=== PATIENT | male | born 1975 | race Caucasian/White ===

== ENCOUNTER 2017-03-25 21:34 | Emergency (ER) | payer SELFPAY ==
--- NOTE | 2017-03-25 22:04 | Emergency Department Record ---
History of Present Illness - General Chief complaint: Abscess Stated complaint: UNSTABLE,SPOT ON LEG, FEELING BAD Time Seen by Provider: 03/25/17 21:36 Source: Patient Mode of Arrival: Ambulatory Limitations: No limitations - History of Present Illness Initial comments: 42 yo male presents to ED with a CC of swelling, pain, and now drainage from a lesion to the left lateral thigh. Patient reports that the lesion has been present since July, however this week became more "hard" and swollen, reports that the lesion has been draining fluid after squeezing it hard tonight in the shower. Patient also reports feeling "off" for the past several days, states "I think it's from this infection". Patient denies health problems at his baseline. MD complaint: Abscess/boil Onset/Timin -: Month(s) Location: LLE Severity scale (1-10): 8 Quality: Burning Consistency: Constant, Getting worse Improves with: Other Worsens with: Movement Associated symptoms: Other Treatments Prior to Arrival: Other Treatment Prior to Arrival Comment:: soaked in tub - Related Data Previous Rx's Medication Instructions Recorded Clindamycin HCl [Cleocin HCl] 300 mg PO QID #40 capsule 03/25/17 Allergies Allergy/AdvReac Type Severity Reaction Status Date / Time No Known Drug Allergies Allergy Verified 03/25/17 21:40 Travel Screening - Travel/Exposure Within Last 30 Days Have you traveled within the last 30 days?: No - Travel Symptoms Symptom Screening: None Review of Systems Constitutional: Reports: Malaise. Denies: Chills, Fever, Night sweats Eyes: Denies: Eye discharge, Eye pain ENT: Denies: Congestion, Ear pain, Epistaxis Respiratory: Denies: Cough, Dyspnea Cardiovascular: Denies: Chest pain, Dyspnea on exertion Endocrine: Denies: Fatigue, Heat or cold intolerance Gastrointestinal: Denies: Abdominal pain, Nausea, Vomiting Genitourinary: Denies: Incontinence, Retention Musculoskeletal: Denies: Arthralgia, Back pain, Gout, Joint swelling Skin: Reports: Other (lesion to the left lower extremity). Denies: Bruising, Change in color, Change in hair/nails Neurological: Denies: Confusion, Headache Psychiatric: Reports: Anxiety Hematological/Lymphatic: Denies: Anemia, Blood Clots Past Medical History - SOCIAL HISTORY Smoking Status: Current every day smoker - RESPIRATORY Hx Respiratory Disorders: Yes Hx Sleep Apnea: Yes Hx of CPAP: Yes - CARDIOVASCULAR Hx Cardio Disorders: Yes Hx Edema: Yes Hx Hypertension: Yes - NEURO Hx Neuro Disorders: Yes Comment:: Neuropathy-feet - GI Hx GI Disorders: No - Hx Genitourinary Disorders: No - ENDOCRINE Hx Endocrine Disorders: No - MUSCULOSKELETAL Hx Musculoskeletal Disorders: No - PSYCH Hx Psych Problems: Yes Hx Anxiety: Yes - HEMATOLOGY/ONCOLOGY Hx Hematology/Oncology Disorders: No Family Medical History Any Significant Family History?: Yes Hx Cancer: Father Hx HTN: Father Physical Exam - General General Appearance: Alert, Oriented x3, Cooperative, No acute distress, Anxious Limitations: No limitations - Head Head exam: Atraumatic, Normocephalic, Normal inspection Head exam detail: negative: Abrasion, Contusion, Babin's sign, General tenderness, Hematoma, Laceration - Eye Eye exam: Normal appearance. negative: Conjunctival injection, Periorbital swelling, Periorbital tenderness, Scleral icterus - ENT Ear exam: negative: Auricular hematoma, Auricular trauma Nasal Exam: negative: Active bleeding, Discharge, Dried blood, Foreign body Mouth exam: negative: Drooling, Laceration, Muffled voice, Tongue elevation - Neck Neck exam: Normal inspection. negative: Meningismus, Tenderness - Respiratory Respiratory exam: Normal lung sounds bilaterally. negative: Rales, Respiratory distress, Rhonchi, Stridor - Cardiovascular Cardiovascular Exam: Regular rate, Normal rhythm, Normal heart sounds - GI/Abdominal GI/Abdominal exam: Soft. negative: Rebound, Rigid, Tenderness - Rectal Rectal exam: Deferred - exam: Deferred - Extremities Extremities exam: Tenderness, Other (2.5 cm diameter circular lesion of erythema and induration, no fluctuance present). negative: Calf tenderness, Pedal edema - Back Back exam: Denies: CVA tenderness (R), CVA tenderness (L) - Neurological Neurological exam: Alert, Normal gait, Oriented X3 - Psychiatric Psychiatric exam: Normal affect, Normal mood - Skin Skin exam: Normal color. negative: Abrasion Type of lesion: negative: abrasion Course Vital Signs 03/25/17 21:44 Temperature 98.4 F Pulse Rate [ 87 Pulse Ox Probe] Respiratory 18 Rate Blood Pressure 143/105 [Left Arm] Pulse Ox 95 - Reevaluation(s) Reevaluation #1: 03/25/17 22:02 On examination, patient's lesion appears c/w mild cellulitis, no evidence for abscess on examination and no drainage is present. Patient's vitals are all within normal limits, and the patient appears stable for discharge on Clindamycin for possible MRSA coverage. Disposition Disposition: Discharge Clinical Impression: Cellulitis Qualifiers: Site of cellulitis: extremity Site of cellulitis of extremity: lower extremity Laterality: left Qualified Code(s): L03.116 - Cellulitis of left lower limb Disposition: Home, Self-Care Condition: (2) Stable Instructions: Cellulitis (ED) Additional Instructions: Return to ED if your symptoms worsen or if you have any concerns. Clindamycin as directed. Follow-up with your family doctor in 3-5 days as directed. Prescriptions: Clindamycin HCl [Cleocin HCl] 300 mg PO QID #40 capsule Forms: Patient Portal Access Time of Disposition: 22:05 Quality - Quality Measures Quality Measures: N/A - Blood Pressure Screening Does Patient Have Any of the Following: No Blood Pressure Classification: Hypertensive Reading Systolic Measurement: 143 Diastolic Measurement: 105 Screening for High Blood Pressure: < First Hypertensive BP, F/U Documented > [ G8950] First Hypertensive Follow-up Interventions: Referral to alternative/primary care provider.
== END 2017-03-25 22:14 | disposition home or self-care (01) ==
LOC: ER 21:34
DX: L03.116 Cellulitis of left lower limb (principal)
CPT/HCPCS: 99282

== ENCOUNTER 2017-09-19 11:10 | Emergency (ER) | payer BC ==
--- NOTE | 2017-09-19 11:42 | Emergency Department Record ---
History of Present Illness - General Chief complaint: Extremity Problem Stated complaint: LEFT FOOT SWELLING/RED Time Seen by Provider: 09/19/17 11:22 Mode of Arrival: Wheelchair - History of Present Illness Initial comments: patient said the toes became infected 7 days ago and on presentation the toes on the left foot are necrotic with toe nails falling off and open wounds. Some redness in the mid foot area. Se[place] and they thought he had zamora bite and gave him keflex but he never filled it. Neuropathy of feet for 3 years and MERSA 3 years ago right foot and he fractured the right foot than 3 years ago. Primary provider Ching Hammer. 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 Onset/Timin -: Days(s) Location: Left, Foot Severity scale (1-10): 9 Quality: Aching Consistency: Constant - Related Data Home Medications Medication Instructions Recorded Confirmed Last Taken No Home Med [NO HOME MEDS] 09/19/17 09/19/17 Unknown Allergies Allergy/AdvReac Type Severity Reaction Status Date / Time No Known Drug Allergies Allergy Verified 09/19/17 11:23 Travel Screening - Travel/Exposure Within Last 30 Days Have you traveled within the last 30 days?: No - Travel/Exposure Within Last Year Have you traveled outside the [place] in the last year?: No - Additonal Travel Details Have you been exposed to anyone with a communicable illness?: No - Travel Symptoms Symptom Screening: None Review of Systems Reviewed: No additional complaints except as noted below Constitutional: Reports: As per HPI. Denies: Chills, Fever, Malaise, Night sweats, Weakness, Weight change Eyes: Reports: As per HPI. Denies: Eye discharge, Eye pain, Photophobia, Vision change ENT: Reports: As per HPI. Denies: Congestion, Dental pain, Ear pain, Epistaxis , Hearing loss, Throat pain Respiratory: Reports: As per HPI, Cough. Denies: Dyspnea, Hemoptysis, Stridor, Wheezes Cardiovascular: Reports: As per HPI. Denies: Arrhythmia, Chest pain, Dyspnea on exertion, Edema, Murmurs, Orthopnea, Palpitations, Paroxysmal nocturnal dyspnea, Rheumatic Fever, Syncope Endocrine: Reports: As per HPI. Denies: Fatigue, Heat or cold intolerance, Polydipsia, Polyuria Gastrointestinal: Reports: As per HPI. Denies: Abdominal pain, Constipation, Diarrhea, Hematemesis, Hematochezia, Melena, Nausea, Vomiting Genitourinary: Reports: As per HPI. Denies: Dysuria, Frequency, Hematuria, Incontinence, Retention, Testicular pain, Testicular mass, Urgency Musculoskeletal: Reports: As per HPI. Denies: Arthralgia, Back pain, Gout, Joint swelling, Myalgia, Neck pain Skin: Reports: As per HPI, Other (all five toes cyanotic and neucrotic and draining). Denies: Bruising, Change in color, Change in hair/nails, Lesions, Pruritus, Rash Neurological: Reports: As per HPI. Denies: Abnormal gait, Confusion, Headache, Numbness, Paresthesias, Seizure, Tingling, Tremors, Vertigo, Weakness Psychiatric: Reports: As per HPI. Denies: Anxiety, Auditory hallucinations, Depression, Homicidal thoughts, Suicidal thoughts, Visual hallucinations Hematological/Lymphatic: Reports: As per HPI. Denies: Anemia, Blood Clots, Easy bleeding, Easy bruising, Swollen glands Past Medical History - SOCIAL HISTORY Smoking Status: Current every day smoker Alcohol Use: None, Rare Drug Use: None - RESPIRATORY Hx Respiratory Disorders: Yes Hx Sleep Apnea: Yes Hx of CPAP: Yes - CARDIOVASCULAR Hx Cardio Disorders: Yes Hx Edema: Yes Hx Hypertension: Yes - NEURO Hx Neuro Disorders: Yes Comment:: Neuropathy-feet - GI Hx GI Disorders: No - Hx Genitourinary Disorders: No - ENDOCRINE Hx Endocrine Disorders: No Hx Diabetes: No Hx Thyroid Disease: No - MUSCULOSKELETAL Hx Musculoskeletal Disorders: No - PSYCH Hx Psych Problems: Yes Hx Anxiety: Yes - HEMATOLOGY/ONCOLOGY Hx Hematology/Oncology Disorders: No Family Medical History Any Significant Family History?: Yes Hx Cancer: Father Hx HTN: Father Physical Exam - General General Appearance: Alert, Oriented x3, Cooperative, No acute distress - Head Head exam: Normal inspection - Eye Eye exam: Normal appearance, PERRL Pupils: Normal accommodation - ENT ENT exam: Normal exam, Mucous membranes moist, Normal external ear exam, Normal orophraynx, TM's normal bilaterally Ear exam: Normal external inspection. negative: External canal tenderness Nasal Exam: Normal inspection. negative: Discharge, Sinus tenderness Mouth exam: Normal external inspection, Tongue normal Teeth exam: Normal inspection. negative: Dental caries Throat exam: Normal inspection. negative: Tonsillar erythema, Tonsillar exudate - Neck Neck exam: Normal inspection, Full ROM. negative: Tenderness - Respiratory Respiratory exam: Normal lung sounds bilaterally. negative: Respiratory distress - Cardiovascular Cardiovascular Exam: Regular rate, Normal rhythm, Normal heart sounds - GI/Abdominal GI/Abdominal exam: Soft, Normal bowel sounds. negative: Tenderness - Rectal Rectal exam: Deferred - exam: Deferred - Extremities Extremities exam: Normal inspection, Full ROM, Normal capillary refill. negative: Tenderness - Back Back exam: Reports: Normal inspection, Full ROM. Denies: Muscle spasm, Rash noted, Tenderness - Neurological Neurological exam: Alert, Normal gait, Oriented X3, Reflexes normal - Psychiatric Psychiatric exam: Normal affect, Normal mood - Skin Skin exam: Dry, Intact, Normal color, Warm Course Vital Signs 09/19/17 11:14 Temperature 99.1 F Pulse Rate 90 Respiratory 20 Rate Blood Pressure 154/89 Pulse Ox 95 - Reevaluation(s) Reevaluation #1: discussed case with Dr. Martinez at [facility] and will transfer to [facility] 09/19/17 14:33 Medical Decision Making - Data Complexity MDM Data: Labs Ordered and/or Reviewed (wbc 12,800, ), X-Ray Ordered and/or Reviewed (foot xray soft tissue swelling no gas, chest neg, venous dopler neg), Review and Summary of Old Record Discussed (c-r p elevated ) - Lab Data Result diagrams: 09/19/17 11:55 09/19/17 11:55 Disposition Clinical Impression: Cellulitis of foot, Gangrene Disposition: Acute Care Hospital Transfer Condition: (2) Stable Forms: Patient Portal Access Time of Disposition: 14:36 Quality - Quality Measures Quality Measures: N/A - Blood Pressure Screening Does Patient Have Any of the Following: No Blood Pressure Classification: Pre-Hypertensive BP Reading Systolic Measurement: 154 Diastolic Measurement: 89 Screening for High Blood Pressure: < Pre-Hypertensive BP, F/U Documented > [ G8950] Pre-Hypertensive Follow-up Interventions: Referral to alternative/primary care provider.
[2017-09-19] MEDS ORDERED: 0.9 % SODIUM CHLORIDE 1000ML 1,000 ML IV PRN (11:59)
[2017-09-19] MEDS ORDERED: HYDROMORPHONE HCL 2 MG/ML VIAL IVP ONE (12:18)
[2017-09-19] MEDS ORDERED: ONDANSETRON HCL IV 4 MG/2 ML VIAL IVP ONE (12:18)
[2017-09-19] MEDS ORDERED: VANCOMYCIN HCL 1,000 MG in 0.9 % SODIUM CHLORIDE 250ML 250 ML IVPB ONE (12:23)
[2017-09-19 12:25] LABS: BASO % 0.2 % (0-6); EOS % 1.3 % (0-6); GRAN % 77.1 % (47-80); HEMATOCRIT 47.2 % (42.0-52.0); HEMOGLOBIN 15.9 gm/dl (14.0-18.0); LYMPH % 12.4 % (16-45); MEAN CELL VOLUME 84.6 fl (81-97); MEAN CORPUSCULAR HEMOGLOBIN 28.5 pg (27-33); MEAN CORPUSCULAR HGB CONC 33.7 g/dl (32-36); MEAN PLATELET VOLUME 9.7 fl (7.4-10.4); PLATELET COUNT 357 K/uL (130-400); RED BLOOD COUNT 5.58 M/uL (4.40-5.70); RED CELL DISTRIBUTION WIDTH 13.3 % (11.5-14.5); WHITE BLOOD COUNT W/O DIFF 12.8 K/uL (4.2-12.2)
[2017-09-19 12:43] LABS: BLOOD UREA NITROGEN 8 mg/dL (6-20); CREATININE 0.7 mg/dL (0.7-1.2); EST GLOMERULAR FILTRATION RATE > 60 mL/min
[2017-09-19 12:45] LABS: GLUCOSE,RANDOM 133 mg/dL (74-109)
[2017-09-19 12:48] LABS: ALB/GLOB RATIO 1.1 (1.1-1.8); ALBUMIN 3.6 g/dL (4.0-5.0); ALKALINE PHOSPHATASE 87 U/L (40-129); ALT/SGPT 12 U/L (<41); AST/SGOT 11 U/L (10.0-50.0)
[2017-09-19] MEDS ORDERED: CEFTRIAXONE SODIUM 2 GM in 0.9 % SODIUM CHLORIDE 100ML 100 ML IVPB ONE (13:12)
--- NOTE | 2017-09-20 08:31 | RADIOLOGY REPORT ---
EXAM: LEFT FOOT HISTORY: PAIN. TECHNIQUE: Three views of the left foot were obtained. Comparison: None. Encounter: Initial. FINDINGS: Osteopenia. Dorsal soft tissue swelling. Degenerative changes of the mid foot. Negative for acute fracture or dislocation. There is no soft tissue gas. IMPRESSION: OSTEOPENIA WITH DEGENERATIVE CHANGES AND DORSAL SOFT TISSUE SWELLING. JOB NUMBER: [id number] MTDD
--- NOTE | 2017-09-20 08:33 | RADIOLOGY REPORT ---
EXAM: CHEST, TWO VIEWS HISTORY: COUGH. TECHNIQUE: Frontal and lateral views of the chest were obtained. Comparison: CTA chest 02/09/15. FINDINGS: The heart size is normal. The lungs are clear. No pneumothorax. IMPRESSION: NO ACUTE CARDIOPULMONARY PROCESS. JOB NUMBER: [id number] MTDD
--- NOTE | 2017-09-20 08:36 | US VENOUS DOPPLER REPORT ---
EXAM: BILATERAL LOWER EXTREMITY DUPLEX VENOUS ULTRASOUND HISTORY: BLISTERS. TECHNIQUE: Transverse and longitudinal sonographic images of the bilateral lower extremity deep venous system. Comparison: None. FINDINGS: No visible areas of thrombus formation. Doppler and spectral analysis with color flow was utilized. Normal waveforms bilaterally. Normal compression and augmentation bilaterally, however, there is suboptimal visualization of the left posterior tibial vein and anterior tibial vein at the level of the left ankle due to soft tissue swelling. IMPRESSION: NEGATIVE FOR DVT. SOFT TISSUE SWELLING OF THE LEFT ANKLE LIMITS EVALUATION AT THIS SITE. JOB NUMBER: [id number] MTDD
== END 2017-09-19 17:00 | disposition short-term general hospital (02) ==
LOC: ER 11:10
DX: L03.116 Cellulitis of left lower limb (principal); I96 Gangrene, not elsewhere classified; I10 Essential (primary) hypertension; F17.210 Nicotine dependence, cigarettes, uncomplicated
CPT/HCPCS: 99285 ×2; 96365; 96366; 96375; 96367; 83605; 85025; 85651; 85730; 86140; 80053; 71046; 73630; 93970; J2405; J3370; J1170; J7050

== ENCOUNTER 2018-01-13 17:11 | Inpatient (IN) | payer BC, MEDICAID ==
[2018-01-13] MEDS ORDERED: AMPICILLIN SODIUM/SULBACTAM NA 3 G in 0.9 % SODIUM CHLORIDE 100ML 100 ML IVPB ONE (17:41)
--- NOTE | 2018-01-13 17:43 | Emergency Department Record ---
History of Present Illness - General Chief Complaint: Wound, check Stated Complaint: SWOLLEN ANKLES,LT BIG TOE WOUND Time Seen by Provider: 01/13/18 17:36 Source: Patient Mode of arrival: Ambulatory Limitations: No limitations - History of Present Illness Initial Comments: The patient is here due to his L foot becoming more painful and swollen. The symptoms have been occurring for about a week and now are worsening. He has a hx of bed foot infections and has lost part of his 2nd toe due to the infection in the past. The patient did see his PCP 4 days ago due to the L big toe blister and infection and was told if it worsens to come to the ER. Now the L ankle has become very mildly swollen also. Onset/Timin -: Week(s) Symptoms Since Prior Visit: Worsening pain, Worsening redness - Related Data Allergies Allergy/AdvReac Type Severity Reaction Status Date / Time No Known Drug Allergies Allergy Verified 01/13/18 17:28 Travel Screening - Travel/Exposure Within Last 30 Days Have you traveled within the last 30 days?: No - Travel/Exposure Within Last Year Have you traveled outside the [place] in the last year?: No - Additonal Travel Details Have you been exposed to anyone with a communicable illness?: No - Travel Symptoms Symptom Screening: None Review of Systems Constitutional: Denies: Chills, Fever Eyes: Denies: Eye discharge ENT: Denies: Congestion Respiratory: Denies: Cough, Dyspnea Cardiovascular: Denies: Chest pain Endocrine: Denies: Fatigue Gastrointestinal: Denies: Abdominal pain Genitourinary: Denies: Dysuria Musculoskeletal: Denies: Arthralgia Past Medical History - SOCIAL HISTORY Smoking Status: Former smoker Alcohol Use: Rare Drug Use: None - RESPIRATORY Hx Respiratory Disorders: Yes Hx Sleep Apnea: Yes Hx of CPAP: Yes - CARDIOVASCULAR Hx Cardio Disorders: Yes Hx Edema: Yes Hx Hypertension: Yes - NEURO Hx Neuro Disorders: Yes Comment:: Neuropathy-feet - GI Hx GI Disorders: No - Hx Genitourinary Disorders: No - ENDOCRINE Hx Endocrine Disorders: No Hx Diabetes: No Hx Thyroid Disease: No - MUSCULOSKELETAL Hx Musculoskeletal Disorders: No - PSYCH Hx Psych Problems: Yes Hx Anxiety: Yes - HEMATOLOGY/ONCOLOGY Hx Hematology/Oncology Disorders: No Family Medical History Any Significant Family History?: Yes Hx Cancer: Father Hx HTN: Father Physical Exam - General General Appearance: Alert, Oriented x3, Cooperative, No acute distress - Head Head exam: Atraumatic, Normocephalic, Normal inspection - Eye Eye exam: Normal appearance, PERRL - ENT Throat exam: Normal inspection. negative: Tonsillar erythema, Tonsillar exudate - Neck Neck exam: Normal inspection, Full ROM. negative: Tenderness - Respiratory Respiratory exam: Normal lung sounds bilaterally. negative: Respiratory distress - Cardiovascular Cardiovascular Exam: Regular rate, Normal rhythm, Normal heart sounds - GI/Abdominal GI/Abdominal exam: Soft, Normal bowel sounds. negative: Tenderness - Extremities Extremities exam: Full ROM, Normal capillary refill, Pedal edema (Trace L>R.), Tenderness (There is tenderness to the toes on the L foot. The L foot DP pulse is 2+. ). negative: Normal inspection (There is a superficial ulcer to the plantar surface of the L big toe with mild surrounding erythema and tenderness. The 2-4th toes area also mildly swollen and erythematous. ) - Neurological Neurological exam: Alert, Normal gait. negative: Abnormal gait, Motor sensory deficit Course Vital Signs 01/13/18 17:24 Temperature 99.1 F Pulse Rate 90 Respiratory 20 Rate Blood Pressure 148/93 Pulse Ox 97 - Reevaluation(s) Reevaluation #1: The patient is doing well at this time and denies any new problems or issues. Due to the nature of his complaints I did recommend hospital admission and the patient agreed. I then did discuss the case with Arely ([employer]) and she does accept the admission for Dr. Paige. 01/13/18 18:37 Medical Decision Making - Data Complexity MDM Data: Labs Ordered and/or Reviewed, X-Ray Ordered and/or Reviewed - Lab Data Result diagrams: 01/13/18 18:00 01/13/18 18:00 - Radiology Data Radiology results: Report reviewed (L foot: No convincing acute changes.) Disposition Disposition: Admit Clinical Impression: Cellulitis of foot, left Disposition: Still a Patient at [facility] Decision to Admit: Admit from ER Decision to Admit Date: 01/13/18 Decision to Admit Time: 18:39 Accepting Physician: Grecia Time Discussed w/Accepting Physician: 18:39 Condition: (2) Stable Time of Disposition: 18:40 Quality - Quality Measures Quality Measures: N/A - Blood Pressure Screening View Details: Yes Does Patient Have Any of the Following: No Blood Pressure Classification: Hypertensive Reading Systolic Measurement: 148 Diastolic Measurement: 93 Screening for High Blood Pressure: < First Hypertensive BP, F/U Documented > [ G8950] First Hypertensive Follow-up Interventions: Referral to alternative/primary care provider.
[2018-01-13 18:11] LABS: BASO % 0.3 % (0-6); EOS % 3.4 % (0-6); GRAN % 69.9 % (47-80); HEMATOCRIT 43.9 % (42.0-52.0); HEMOGLOBIN 14.5 gm/dl (14.0-18.0); MEAN CELL VOLUME 85.1 fl (81-97); MEAN CORPUSCULAR HEMOGLOBIN 28.1 pg (27-33); MEAN PLATELET VOLUME 9.2 fl (7.4-10.4); MONO % 8.4 % (0-9); PLATELET COUNT 337 K/uL (130-400); RED BLOOD COUNT 5.16 M/uL (4.40-5.70); WHITE BLOOD COUNT W/O DIFF 11.7 K/uL (4.2-12.2)
[2018-01-13 18:23] LABS: BLOOD UREA NITROGEN 11 mg/dL (6-20); CREATININE 0.6 mg/dL (0.7-1.2); EST GLOMERULAR FILTRATION RATE > 60 mL/min
[2018-01-13 18:26] LABS: GLUCOSE,RANDOM 174 mg/dL (74-109)
[2018-01-13] MEDS ORDERED: POTASSIUM CHLORIDE 20 MEQ TABLET PO ONE (18:39)
[2018-01-13] MEDS: AMPICILLIN SODIUM/SULBACTAM NA 3 G in 0.9 % SODIUM CHLORIDE 100ML 100 ML IVPB SCH (19:38)
[2018-01-13] MEDS: ACETAMINOPHEN 325 MG TAB PO PRN (19:40)
[2018-01-14] MEDS: AMPICILLIN SODIUM/SULBACTAM NA 3 G in 0.9 % SODIUM CHLORIDE 100ML 100 ML IVPB SCH ×2 (01:59→09:25)
--- NOTE | 2018-01-14 08:22 | RADIOLOGY REPORT ---
EXAM: LEFT FOOT, THREE VIEWS HISTORY: TOE INFECTION. PRIOR AMPUTATIONS. TECHNIQUE: Three views of the left foot were obtained. Comparison: Three views of the left foot dated 09/19/17. Encounter: Initial. FINDINGS: There is diffuse osteopenia. There has been interval amputation of the second digit at the PIP joint level. Additionally, there are post osteotomy changes involving the third PIP joint with callus formation present. No osseous bridging identified between the third proximal phalanx and middle phalanx. No acute fracture is seen. No dislocation. There are mild to moderate degenerative changes scattered within the mid and distal portions of the foot. There is soft tissue swelling involving the great toe with probable small ulceration at its plantar aspect. No new suspicious focal erosion or periosteal reaction to suggest acute osteomyelitis. IMPRESSION: 1. OSTEOPENIA. 2. PARTIAL AMPUTATION OF THE SECOND DIGIT IN THE INTERVAL WITHOUT EVIDENCE OF COMPLICATION. POST SURGICAL CHANGES INVOLVING THE THIRD PIP JOINT, DISCUSSED ABOVE. 3. NO ACUTE FRACTURE NOR DISLOCATION. NO DEFINITE OSSEOUS EVIDENCE OF ACUTE OSTEOMYELITIS. 4. DIFFUSE SOFT TISSUE SWELLING INCLUDING THE GREAT TOE WHERE THERE IS A PROBABLE SMALL ULCERATION AT ITS PLANTAR SURFACE. JOB NUMBER: [id number] [facility]
[2018-01-14] MEDS: ENALAPRIL 5 MG TABLET PO SCH (09:24)
[2018-01-14] MEDS: DULOXETINE HCL 30 MG CAPSULE.DR PO SCH (09:24)
--- NOTE | 2018-01-14 09:43 | History & Physical ---
History of Present Illness - Date of Service Date of Service for History & Physical: 01/14/18 - History of Present Illness Admitting Diagnosis: 1. L foot and Toe Cellulitis. History of Present Illness: 42 yo male admitted for left foot/toe cellulitis. PMH recent partial toe amp r/ t MRSA infection, smoker, HTN, DEP. No hx DM. Pt was seen in family practice for left foot swelling and redness. Pt was instructed to continue treatment of foot with bacitracin and bandaid. Pt was instructed to keep legs elevated and use compression socks to control edema. Pt presented to ER for continued edema and increased redness, swelling, and pain. Left foot was noted to have mild edema and redness across all the toes. Great toe noted intact blister and caloused ulcer to plantar surface. 99.1F, Hr90, Bp 148/93, RR 20, 97% RA, pain 10/10 WBC 11.7, Hgb 14.5, Hct 43.9, plt 337 Na 142, K 3.2 (replaced in ER), CL 103, CO2 24, BUN 11, creatinine 0.6, GFR >60 , glucose 174, CRP 0.96 Pt given Unasyn 3gm in ER. 01/14/18 -pt resting in bed, no acute distress. Quique ankle edema noted, non pitting. Left toes are red, warm to the touch but no open areas or drainage noted. Intact blister to ant great toe and intact caloused ulcer to plantar surface great toe. Pt is denying shoes being too tight or any known inury. Second toe surgical incision appears healed and well approximated, no s/s of surgical complications. POC- changing ABX based on pt hx of MRSA and recent need for partial toe amp last month. Using Vancomycin and Zosyn IVPB Labs repeated, K 3.8 and A1c 5.7. Keep wound covered with triple abx oint and gauze wrapping. Change Qd and PRN. No discharge to culture at this time. PCP Michelle Alanis NP Travel Screening - Travel/Exposure Within Last 30 Days Have you traveled within the last 30 days?: No - Travel/Exposure Within Last Year Have you traveled outside the [place] in the last year?: No - Additonal Travel Details Have you been exposed to anyone with a communicable illness?: No - Travel Symptoms Symptom Screening: Fever (Subjective), Weakness, Fatigue Review of Systems Constitutional: Denies: Chills, Fever Eyes: Denies: Eye discharge ENT: Denies: Congestion Respiratory: Denies: Cough, Dyspnea Cardiovascular: Denies: Chest pain Endocrine: Denies: Fatigue Gastrointestinal: Denies: Abdominal pain Genitourinary: Denies: Dysuria Musculoskeletal: Denies: Arthralgia Past Medical History - SOCIAL HISTORY Smoking Status: Former smoker Alcohol Use: Rare Drug Use: None - RESPIRATORY Hx Respiratory Disorders: Yes Hx Sleep Apnea: Yes Hx of CPAP: Yes Comment:: doesn't use CPAP - "haven't used in a while" - CARDIOVASCULAR Hx Cardio Disorders: Yes Hx Abnormal EKG: No Hx Cardiac Cath: No Hx Chest Pain: No Hx CHF: No Hx Deep Vein Thrombosis: No Hx Edema: Yes Hx Heart Attack: No Hx Hypertension: Yes Hx Hypotension: No Hx Irregular Heartbeat: No Hx Palpitations: No Hx Pacemaker/Defib: No Hx Vascular Disease: No - NEURO Hx Neuro Disorders: Yes Comment:: Neuropathy-feet - GI Hx GI Disorders: No - Hx Genitourinary Disorders: No - ENDOCRINE Hx Endocrine Disorders: No Hx Diabetes: No Hx Thyroid Disease: No - MUSCULOSKELETAL Hx Musculoskeletal Disorders: No - PSYCH Hx Psych Problems: Yes Hx Anxiety: Yes - HEMATOLOGY/ONCOLOGY Hx Hematology/Oncology Disorders: No Family Medical History Any Significant Family History?: Yes Hx Cancer: Father *Cancer Comment: 1991 H&P Meds/Allergies - Allergies Allergies: Allergies Allergy/AdvReac Type Severity Reaction Status Date / Time No Known Drug Allergies Allergy Verified 01/13/18 17:28 - Active Medications Active Medications: Current Medications Acetaminophen (Tylenol 325mg) 650 mg PO Q4H PRN PRN Reason: PAIN - MILD(1-4)/FEVER Last Admin: 01/13/18 19:40 Dose: 650 mg Duloxetine HCl (Cymbalta) 60 mg PO DAILY [facility] Last Admin: 01/14/18 09:24 Dose: 60 mg Enalapril Maleate (Vasotec) 20 mg PO DAILY [facility] Last Admin: 01/14/18 09:24 Dose: 20 mg Piperacillin Sod/Tazobactam (Sod 4.5 gm/ Sodium Chloride) 100 mls @ 200 mls/hr IVPB Q8H [facility] Trazodone HCl (Desyrel) 50 mg PO QHS PRN PRN Reason: INSOMNIA Physical Exam - Vital Signs Vital Signs: Vital Signs - Last 24 Hrs Temp Pulse Pulse Resp BP BP Pulse Ox 01/14/18 08:00 97.6 F 64 18 117/70 98 01/13/18 18:55 98.8 F 82 20 149/100 97 01/13/18 18:36 98.7 F 83 16 140/73 98 01/13/18 17:24 99.1 F 90 20 148/93 97 - General General Appearance: Alert, Oriented x3, Cooperative, No acute distress Limitations: No limitations - Head Head exam: Atraumatic, Normocephalic, Normal inspection - Eye Eye exam: Normal appearance, PERRL - ENT ENT exam: Mucous membranes moist Ear exam: Normal external inspection Mouth exam: Normal external inspection Throat exam: Normal inspection. negative: Tonsillar erythema, Tonsillar exudate - Neck Neck exam: Normal inspection, Full ROM. negative: Tenderness - Respiratory Respiratory exam: Normal lung sounds bilaterally. negative: Respiratory distress - Cardiovascular Cardiovascular Exam: Regular rate, Normal rhythm, Normal heart sounds Peripheral Pulses: 2+: Radial (R), Radial (L), Dorsalis Pedis (R), Dorsalis Pedis (L) - GI/Abdominal GI/Abdominal exam: Soft, Normal bowel sounds. negative: Tenderness - Rectal Rectal exam: Deferred - exam: Deferred - Extremities Extremities exam: Full ROM, Normal capillary refill, Pedal edema (Trace L>R.), Tenderness (There is tenderness to the toes on the L foot. The L foot DP pulse is 2+. ). negative: Normal inspection (There is a superficial ulcer to the plantar surface of the L big toe with mild surrounding erythema and tenderness. The 2-4th toes area also mildly swollen and erythematous. ) - Back Back exam: Reports: Normal inspection - Neurological Neurological exam: Alert, Normal gait. negative: Abnormal gait, Motor sensory deficit - Psychiatric Psychiatric exam: Normal affect, Normal mood - Skin Skin exam: Dry, Erythema, Intact, Warm Distribution of rash: LLE Description of rash: Blisters (intact), Erythematous, Swelling, Tenderness Results - Labs Result Diagrams: 01/13/18 18:00 01/14/18 10:00 Labs Last 24 Hours: Laboratory Results - last 24 hr 01/13/18 01/13/18 01/13/18 18:00 18:00 18:00 WBC 11.7 RBC 5.16 Hgb 14.5 Hct 43.9 MCV 85.1 MCH 28.1 MCHC 33.0 RDW 15.0 H Plt Count 337 MPV 9.2 Gran % 69.9 Lymphocytes % 18.0 Monocytes % 8.4 Eosinophils % 3.4 Basophils % 0.3 Sodium 142 Potassium 3.2 L Chloride 103 Carbon Dioxide 24.0 Anion Gap 15.0 BUN 11 Creatinine 0.6 L Estimated GFR > 60 Random Glucose 174 H Calcium 8.9 C-Reactive Protein 0.96 H VTE H&P Assessment - Risk for VTE Risk for VTE: Yes Risk Level: Moderate Risk Assessment Date: 01/14/18 Risk Assessment Time: 12:49 VTE Orders Placed or Will Be Placed: Yes Plan - Inpatient Certification Inpatient Certification: Admit to inpatient care: Based on my medical assessment, after consideration of patient's risk factors (age, co-morbidities and patient presenting symptoms and acuity), I expect that this patient will remain in the hospital greater than or equal to two midnights and that the services needed warrant inpatient care because: Patient Risk Factors: Cellulitis, h/o MRSA, recent toe amp r/t foot infection Estimated length of stay: The patient may reasonably be expected to be discharged or transferred to a hospital within 96 hours after admission to [facility]. Services needed: IV abx Post hospital care (if known): [] I certify that my determination is in accordance with my understanding of Medicare requirements for reasonable and necessary inpatient services. 01/14/18 12:50 - Detailed Diagnosis and Plan (1) Cellulitis of foot, left Current Visit: Yes Status: Acute Base Code: L03.116 - CELLULITIS OF LEFT LOWER LIMB Comment: 01/14/18 -Left toes are red, warm to the touch but no open areas or drainage noted. Intact blister to ant great toe and intact caloused ulcer to plantar surface great toe. - changing ABX based on pt hx of MRSA and recent need for partial toe amp last month. Using Vancomycin and Zosyn IVPB -Labs repeated, K 3.8 and A1c 5.7 -Keep wound covered with triple abx oint and gauze wrapping. Change Qd and PRN. No discharge to culture at this time (2) DVT prophylaxis Current Visit: Yes Status: Acute Base Code: [id number] - Comment: 01/14/18 - lovenox 40mg SQ daily -pt has decreased activity and active infection (3) Full code status Current Visit: Yes Status: Acute Base Code: Z78.9 - OTHER SPECIFIED HEALTH STATUS Comment: 01/14/18 -full code status
[2018-01-14 10:20] LABS: BLOOD UREA NITROGEN 10 mg/dL (6-20); CREATININE 0.5 mg/dL (0.7-1.2); EST GLOMERULAR FILTRATION RATE > 60 mL/min; GLUCOSE,RANDOM 135 mg/dL (74-109)
[2018-01-14] MEDS: PIPERACILLIN SODIUM/TAZOBACTAM 4.5 GM in 0.9 % SODIUM CHLORIDE 100ML 100 ML IVPB SCH ×2 (10:24→17:39)
[2018-01-14] MEDS: VANCOMYCIN HCL 1,000 MG in 0.9 % SODIUM CHLORIDE 250ML 250 ML IVPB SCH ×4 (11:29→19:44)
[2018-01-14] MEDS: TRAZODONE 50 MG TABLET PO PRN (22:45)
[2018-01-15] MEDS: PIPERACILLIN SODIUM/TAZOBACTAM 4.5 GM in 0.9 % SODIUM CHLORIDE 100ML 100 ML IVPB SCH ×3 (01:31→18:00)
[2018-01-15] MEDS: VANCOMYCIN HCL 1,000 MG in 0.9 % SODIUM CHLORIDE 250ML 250 ML IVPB SCH ×6 (02:06→21:11)
[2018-01-15] MEDS: DULOXETINE HCL 30 MG CAPSULE.DR PO SCH (09:37)
[2018-01-15] MEDS: ENOXAPARIN 40 MG/0.4 ML SYR SQ SCH (09:37)
[2018-01-15] MEDS: ENALAPRIL 5 MG TABLET PO SCH (09:38)
--- NOTE | 2018-01-15 10:13 | Physician Progress Note ---
Subjective - Date Date of Physician Progress Note: 01/15/18 - Subjective Subjective Comment: 01/15/2018: Patient A&O x 4. Resting comfortably in bed. Mild pain in left foot. No swelling noted of lower extremities bilaterally. Wound area cleaned and redressed. Wound bed has small ulcer noted on plantar surface of left great toe. Minimal drainage noted from affected area, not enough to culture at this time. First four toes of left foot have erythema and warmth noted. Patient denies systemic symptoms of fever, chills, or shortness of breath. IV Vanco and Zosyn started yesterday, patient tolerating well. Location: Left, Lower extremity Radiation: Non-Radiating Quality: Dull Consistency: Constant Worsens with: Movement Associated symptoms: Denies other symptoms Objective - Vital Signs Vital Signs: Vital Signs - Last 24 Hrs Temp Pulse Resp BP Pulse Ox 01/15/18 08:37 18 01/15/18 08:00 97.7 F 68 18 129/79 96 01/14/18 21:00 18 01/14/18 20:00 98.3 F 68 20 129/70 97 01/14/18 16:00 98.9 F 80 18 124/74 96 01/14/18 12:00 98.6 F 75 18 149/77 93 L - General General Appearance: Alert, Oriented x3, Cooperative, No acute distress Limitations: No limitations - Head Head exam: Atraumatic, Normocephalic, Normal inspection - Eye Eye exam: Normal appearance, PERRL - ENT ENT exam: Normal exam, Mucous membranes moist Ear exam: Normal external inspection Mouth exam: Normal external inspection Throat exam: Normal inspection. negative: Tonsillar erythema, Tonsillar exudate - Neck Neck exam: Normal inspection, Full ROM. negative: Tenderness - Respiratory Respiratory exam: Normal lung sounds bilaterally. negative: Respiratory distress - Cardiovascular Cardiovascular Exam: Regular rate, Normal rhythm, Normal heart sounds Peripheral Pulses: 2+: Radial (R), Radial (L), Dorsalis Pedis (R), Dorsalis Pedis (L) - GI/Abdominal GI/Abdominal exam: Soft, Normal bowel sounds. negative: Tenderness - Rectal Rectal exam: Deferred - exam: Deferred - Extremities Extremities exam: Full ROM, Normal capillary refill, Pedal edema (Trace L>R.), Tenderness (There is tenderness to the toes on the L foot. The L foot DP pulse is 2+. ). negative: Normal inspection (There is a superficial ulcer to the plantar surface of the L big toe with mild surrounding erythema and tenderness. The 2-4th toes area also mildly swollen and erythematous. ) - Back Back exam: Reports: Normal inspection - Neurological Neurological exam: Alert, Normal gait. negative: Abnormal gait, Motor sensory deficit - Psychiatric Psychiatric exam: Normal affect, Normal mood - Skin Skin exam: Dry, Erythema, Intact, Warm Type of lesion: Other (ulcer to plantar surface of left great toe) Distribution of rash: LLE Description of rash: Erythematous, Swelling, Tenderness Assessment and Plan - Assessment and Plan (1) Cellulitis of foot, left Current Visit: Yes Status: Acute Base Code: L03.116 - CELLULITIS OF LEFT LOWER LIMB Comment: 01/15/18 -Left first 4 toes are red, warm to the touch but no open areas or drainage noted. Intact caloused ulcer to plantar surface great toe. - changing ABX based on pt hx of MRSA and recent need for partial toe amp last month. Using Vancomycin and Zosyn IVPB q8h. Vanco trough to be drawn today, dose managed by pharmacy -A1c 5.7 -Repeat CBC and [employer] pending -Keep wound covered with triple abx oint and gauze wrapping. Change Qd and PRN. No discharge to culture at this time -Patient to elevate leg while laying in bed -Venous dopplers completed in September 2017 negative, dorsalis pedal pulse 2+ and posterior tibial pulse 2+ -Pain controlled with Tylenol prn -Patient will need to follow-up with command and control systems integrator after discharge (2) DVT prophylaxis Current Visit: Yes Status: Acute Base Code: [id number] - Comment: 01/15/18: moderate risk due to decreased acitivy, obesity, and active infection -lovenox 40mg SQ daily (3) Full code status Current Visit: Yes Status: Acute Base Code: Z78.9 - OTHER SPECIFIED HEALTH STATUS Comment: 01/15/18: full code status this admission - Disposition Disposition: Patient will likely require at least 3 days of IV antibiotics due to MRSA history with toe amputation Results - Labs Result Diagrams: 01/13/18 18:00 01/14/18 10:00 Labs Last 24 Hours: Laboratory Results - last 24 hr 01/14/18 01/14/18 10:00 10:00 Sodium 144 Potassium 3.8 Chloride 103 Carbon Dioxide 27.0 Anion Gap 14.0 BUN 10 Creatinine 0.5 L Estimated GFR > 60 Random Glucose 135 H Hemoglobin A1c 5.70 Calcium 8.5 L DVT/PE Assessment - Risk for VTE Risk for VTE: No Risk Level: Moderate Risk Assessment Date: 01/14/18 Risk Assessment Time: 12:49 VTE Orders Placed or Will Be Placed: Yes - Active Medicaitons Current Medications: Current Medications Acetaminophen (Tylenol 325mg) 650 mg PO Q4H PRN PRN Reason: PAIN - MILD(1-4)/FEVER Last Admin: 01/13/18 19:40 Dose: 650 mg Duloxetine HCl (Cymbalta) 60 mg PO DAILY [facility] Last Admin: 01/15/18 09:37 Dose: 60 mg Enalapril Maleate (Vasotec) 20 mg PO DAILY [facility] Last Admin: 01/15/18 09:38 Dose: 20 mg Enoxaparin Sodium (Lovenox) 40 mg SQ DAILY [facility] Last Admin: 01/15/18 09:37 Dose: 40 mg Piperacillin Sod/Tazobactam (Sod 4.5 gm/ Sodium Chloride) 100 mls @ 200 mls/hr IVPB Q8H [facility] Last Infusion: 01/15/18 02:06 Dose: Infused Vancomycin HCl 1,000 mg/ (Sodium Chloride) 250 mls @ 250 mls/hr IVPB Q8H [facility] Stop: 01/19/18 11:01 Last Infusion: 01/15/18 04:04 Dose: Infused Vancomycin HCl 1,000 mg/ (Sodium Chloride) 250 mls @ 250 mls/hr IVPB Q8H [facility] Stop: 01/19/18 12:01 Last Infusion: 01/15/18 05:20 Dose: Infused Trazodone HCl (Desyrel) 50 mg PO QHS PRN PRN Reason: INSOMNIA Last Admin: 01/14/18 22:45 Dose: 50 mg AMI Plan - Labs Result Diagrams: 01/13/18 18:00 01/14/18 10:00
[2018-01-15 10:38] LABS: BASO % 0.3 % (0-6); EOS % 3.3 % (0-6); GRAN % 75.3 % (47-80); HEMATOCRIT 43.9 % (42.0-52.0); HEMOGLOBIN 14.5 gm/dl (14.0-18.0); LYMPH % 13.8 % (16-45); MEAN CELL VOLUME 85.7 fl (81-97); MEAN CORPUSCULAR HEMOGLOBIN 28.3 pg (27-33); MEAN PLATELET VOLUME 9.4 fl (7.4-10.4); MONO % 7.3 % (0-9); PLATELET COUNT 310 K/uL (130-400); RED BLOOD COUNT 5.12 M/uL (4.40-5.70); RED CELL DISTRIBUTION WIDTH 14.6 % (11.5-14.5)
[2018-01-15 11:09] LABS: BLOOD UREA NITROGEN 9 mg/dL (6-20); CREATININE 0.6 mg/dL (0.7-1.2); EST GLOMERULAR FILTRATION RATE > 60 mL/min; GLUCOSE,RANDOM 149 mg/dL (74-109)
[2018-01-15] MEDS: ACETAMINOPHEN 325 MG TAB PO PRN (14:10)
[2018-01-15] MEDS: TRAZODONE 50 MG TABLET PO PRN (23:37)
[2018-01-16] MEDS: PIPERACILLIN SODIUM/TAZOBACTAM 4.5 GM in 0.9 % SODIUM CHLORIDE 100ML 100 ML IVPB SCH ×2 (02:47→11:00)
[2018-01-16] MEDS: VANCOMYCIN HCL 1,000 MG in 0.9 % SODIUM CHLORIDE 250ML 250 ML IVPB SCH ×6 (03:24→20:50)
--- NOTE | 2018-01-16 09:41 | Physician Progress Note ---
Subjective - Date Date of Physician Progress Note: 01/16/18 - Subjective Subjective Comment: 01/16/2018: Patient A&O x 4. Resting comfortably in bed. Mild pain in left foot. No swelling noted of lower extremities bilaterally. Wound area cleaned and redressed. Dressing changed to aquacell ag on open ulcer, triple antibiotic ointment stopped at this time. Wound bed has small ulcer noted on plantar surface of left great toe, unchanged from yesterday. Minimal drainage noted from affected area, not enough to culture at this time. First four toes of left foot have erythema noted, erythema decreased from yesterday. Patient denies systemic symptoms of fever, chills, or shortness of breath. IV Vanco and Zosyn continued, today is day 3 of IV vanco and zosyn, patient tolerating well. Location: Left, Lower extremity Objective - Vital Signs Vital Signs: Vital Signs - Last 24 Hrs Temp Pulse Resp BP BP Pulse Ox 01/16/18 08:00 98.1 F 61 18 143/70 96 01/15/18 21:00 58 L 20 01/15/18 19:55 98.6 F 58 L 20 124/75 96 01/15/18 16:00 98.1 F 69 18 131/84 94 L 01/15/18 13:50 98.0 F 56 L 18 146/91 95 - General General Appearance: Alert, Oriented x3, Cooperative, No acute distress Limitations: No limitations - Head Head exam: Atraumatic, Normocephalic, Normal inspection - Eye Eye exam: Normal appearance, PERRL - ENT ENT exam: Normal exam, Mucous membranes moist Ear exam: Normal external inspection Mouth exam: Normal external inspection Throat exam: Normal inspection. negative: Tonsillar erythema, Tonsillar exudate - Neck Neck exam: Normal inspection, Full ROM. negative: Tenderness - Respiratory Respiratory exam: Normal lung sounds bilaterally. negative: Respiratory distress - Cardiovascular Cardiovascular Exam: Regular rate, Normal rhythm, Normal heart sounds Peripheral Pulses: 2+: Radial (R), Radial (L), Dorsalis Pedis (R), Dorsalis Pedis (L) - GI/Abdominal GI/Abdominal exam: Soft, Normal bowel sounds. negative: Tenderness - Rectal Rectal exam: Deferred - exam: Deferred - Extremities Extremities exam: Full ROM, Normal capillary refill, Tenderness (There is tenderness to the toes on the L foot. The L foot DP pulse is 2+. ), Other ( There is a superficial ulcer to the plantar surface of the L big toe with mild surrounding erythema and tenderness. The 2-4th toes area also mildly swollen and erythematous. ). negative: Normal inspection - Back Back exam: Reports: Normal inspection - Neurological Neurological exam: Alert, Normal gait. negative: Abnormal gait, Motor sensory deficit - Psychiatric Psychiatric exam: Normal affect, Normal mood - Skin Skin exam: Dry, Erythema, Intact, Warm Type of lesion: Other (ulcer to plantar surface of left great toe) Distribution of rash: LLE Description of rash: Erythematous, Swelling, Tenderness Assessment and Plan - Assessment and Plan (1) Cellulitis of foot, left Current Visit: Yes Status: Acute Base Code: L03.116 - CELLULITIS OF LEFT LOWER LIMB Comment: 01/16/18 -Left first 4 toes have improving erythema, no areas of drainage noted. Intact caloused ulcer to plantar surface left great toe. - changing ABX based on pt hx of MRSA and recent need for partial toe amp last month. Using Vancomycin and Zosyn IVPB q8h. Vanco trough therapeutic, dose managed by pharmacy -A1c 5.7 -Repeat CBC and [employer] show improved WBC -Keep wound covered with silver impregnated dressing. Change Qd and PRN. No discharge to culture at this time -Patient to elevate leg while laying in bed -Venous dopplers completed in September 2017 negative, dorsalis pedal pulse 2+ and posterior tibial pulse 2+ -Pain controlled with Tylenol prn -Patient will need to follow-up with mixer whipped topping and possibly wound clinic after discharge (2) DVT prophylaxis Current Visit: Yes Status: Acute Base Code: [id number] - Comment: 01/16/18: moderate risk due to decreased acitivy, obesity, and active infection -lovenox 40mg SQ daily (3) Full code status Current Visit: Yes Status: Acute Base Code: Z78.9 - OTHER SPECIFIED HEALTH STATUS Comment: 01/16/18: full code status this admission - Disposition Disposition: Patient will likely require at least 3 days of IV antibiotics due to MRSA history with toe amputation Results - Labs Result Diagrams: 01/15/18 10:23 01/15/18 10:23 Labs Last 24 Hours: Laboratory Results - last 24 hr 01/15/18 01/15/1818 10:23 10:23 10:23 WBC 11.0 RBC 5.12 Hgb 14.5 Hct 43.9 MCV 85.7 MCH 28.3 MCHC 33.0 RDW 14.6 H Plt Count 310 MPV 9.4 Gran % 75.3 Lymphocytes % 13.8 L Monocytes % 7.3 Eosinophils % 3.3 Basophils % 0.3 Sodium 141 Potassium 4.0 Chloride 99 Carbon Dioxide 28.0 Anion Gap 14.0 BUN 9 Creatinine 0.6 L Estimated GFR > 60 Random Glucose 149 H Calcium 8.7 Vancomycin Trough 20.2 H* DVT/PE Assessment - Risk for VTE Risk for VTE: Yes Risk Level: Moderate Risk Assessment Date: 01/14/18 Risk Assessment Time: 12:49 VTE Orders Placed or Will Be Placed: Yes - Active Medicaitons Current Medications: Current Medications Acetaminophen (Tylenol 325mg) 650 mg PO Q4H PRN PRN Reason: PAIN - MILD(1-4)/FEVER Last Admin: 01/15/18 14:10 Dose: 650 mg Duloxetine HCl (Cymbalta) 60 mg PO DAILY [facility] Last Admin: 01/15/18 09:37 Dose: 60 mg Enalapril Maleate (Vasotec) 20 mg PO DAILY [facility] Last Admin: 01/15/18 09:38 Dose: 20 mg Enoxaparin Sodium (Lovenox) 40 mg SQ DAILY [facility] Last Admin: 01/15/18 09:37 Dose: 40 mg Piperacillin Sod/Tazobactam (Sod 4.5 gm/ Sodium Chloride) 100 mls @ 200 mls/hr IVPB Q8H [facility] Last Infusion: 01/16/18 03:23 Dose: Infused Vancomycin HCl 1,000 mg/ (Sodium Chloride) 250 mls @ 250 mls/hr IVPB Q8H [facility] Stop: 01/19/18 11:01 Last Infusion: 01/16/18 04:40 Dose: Infused Vancomycin HCl 1,000 mg/ (Sodium Chloride) 250 mls @ 250 mls/hr IVPB Q8H [facility] Stop: 01/19/18 12:01 Last Infusion: 01/16/18 06:08 Dose: Infused Trazodone HCl (Desyrel) 50 mg PO QHS PRN PRN Reason: INSOMNIA Last Admin: 01/15/18 23:37 Dose: 50 mg AMI Plan - Labs Result Diagrams: 01/15/18 10:23 01/15/18 10:23
[2018-01-16] MEDS: DULOXETINE HCL 30 MG CAPSULE.DR PO SCH (10:28)
[2018-01-16] MEDS: ENOXAPARIN 40 MG/0.4 ML SYR SQ SCH (10:28)
[2018-01-16] MEDS: ENALAPRIL 5 MG TABLET PO SCH (11:18)
[2018-01-16] MEDS ORDERED: VANCOMYCIN HCL 1,000 MG in 0.9 % SODIUM CHLORIDE 250ML 250 ML IVPB SCH (12:00)
[2018-01-16] MEDS ORDERED: 0.9 % SODIUM CHLORIDE 1000ML 1,000 ML IV SCH (14:15)
[2018-01-16] MEDS: ACETAMINOPHEN 325 MG TAB PO PRN (21:47)
[2018-01-16] MEDS: TRAZODONE 50 MG TABLET PO PRN (21:53)
[2018-01-17] MEDS: VANCOMYCIN HCL 1,000 MG in 0.9 % SODIUM CHLORIDE 250ML 250 ML IVPB SCH ×5 (05:09→21:20)
[2018-01-17 07:17] LABS: BASO % 0.2 % (0-6); EOS % 4.1 % (0-6); GRAN % 69.6 % (47-80); HEMATOCRIT 44.3 % (42.0-52.0); HEMOGLOBIN 14.6 gm/dl (14.0-18.0); LYMPH % 17.8 % (16-45); MEAN CELL VOLUME 85.9 fl (81-97); MEAN CORPUSCULAR HEMOGLOBIN 28.3 pg (27-33); MEAN PLATELET VOLUME 9.8 fl (7.4-10.4); MONO % 8.3 % (0-9); PLATELET COUNT 281 K/uL (130-400); RED BLOOD COUNT 5.16 M/uL (4.40-5.70); RED CELL DISTRIBUTION WIDTH 14.4 % (11.5-14.5); WHITE BLOOD COUNT W/O DIFF 9.5 K/uL (4.2-12.2)
[2018-01-17 07:32] LABS: BLOOD UREA NITROGEN 9 mg/dL (6-20); CREATININE 0.5 mg/dL (0.7-1.2); EST GLOMERULAR FILTRATION RATE > 60 mL/min; GLUCOSE,RANDOM 106 mg/dL (74-109)
--- NOTE | 2018-01-17 10:30 | Physician Progress Note ---
Subjective - Date Date of Physician Progress Note: 01/17/18 - Subjective Subjective Comment: 01/17/2018: Patient A&O x 4. Resting comfortably in bed. Mild pain in left foot. No swelling noted of lower extremities bilaterally. Wound area cleaned and left open to air. Yesterday aquacell ag was placed on open ulcer, triple antibiotic ointment stopped at this time. However, the area appears to be kept too moist, will leave open at this time. Will consider a silver-impregnated dry gauze dressing later. Wound bed has small ulcer noted on plantar surface of left great toe, unchanged from yesterday. Small amount of drainage noted from affected area, culture obtained today. First four toes of left foot have mild erythema noted, erythema unchanged from yesterday. Patient denies systemic symptoms of fever, chills, or shortness of breath. IV Vanco continued , today is day 4 of IV vanco, patient tolerating well. WBC down to 9.5 today, remains afebrile. Location: Left, Lower extremity Radiation: Non-Radiating Quality: Aching Consistency: Constant Improves with: None Objective - Vital Signs Vital Signs: Vital Signs - Last 24 Hrs Temp Pulse Resp BP Pulse Ox 01/17/18 08:00 97.9 F 63 18 121/79 96 01/16/18 21:00 53 L 18 01/16/18 16:00 98.4 F 53 L 18 141/91 96 01/16/18 12:00 97.9 F 91 H 20 135/65 96 - General General Appearance: Alert, Oriented x3, Cooperative, No acute distress Limitations: No limitations - Head Head exam: Atraumatic, Normocephalic, Normal inspection - Eye Eye exam: Normal appearance, PERRL - ENT ENT exam: Normal exam, Mucous membranes moist Ear exam: Normal external inspection Mouth exam: Normal external inspection Throat exam: Normal inspection. negative: Tonsillar erythema, Tonsillar exudate - Neck Neck exam: Normal inspection, Full ROM. negative: Tenderness - Respiratory Respiratory exam: Normal lung sounds bilaterally. negative: Respiratory distress - Cardiovascular Cardiovascular Exam: Regular rate, Normal rhythm, Normal heart sounds Peripheral Pulses: 2+: Radial (R), Radial (L), Dorsalis Pedis (R), Dorsalis Pedis (L) - GI/Abdominal GI/Abdominal exam: Soft, Normal bowel sounds. negative: Tenderness - Rectal Rectal exam: Deferred - exam: Deferred - Extremities Extremities exam: Full ROM, Normal capillary refill, Tenderness (There is tenderness to the toes on the L foot. The L foot DP pulse is 2+. ), Other ( There is a superficial ulcer to the plantar surface of the L big toe with mild surrounding erythema and tenderness. The 2-4th toes area also mildly erythematous. ). negative: Normal inspection - Back Back exam: Reports: Normal inspection - Neurological Neurological exam: Alert, Normal gait. negative: Abnormal gait, Motor sensory deficit - Psychiatric Psychiatric exam: Normal affect, Normal mood - Skin Skin exam: Dry, Erythema, Intact, Warm Type of lesion: Other (ulcer to plantar surface of left great toe) Distribution of rash: LLE Description of rash: Erythematous, Tenderness Assessment and Plan - Assessment and Plan (1) Cellulitis of foot, left Current Visit: Yes Status: Acute Base Code: L03.116 - CELLULITIS OF LEFT LOWER LIMB Comment: 01/17/18 -Left first 4 toes have unchanging erythema. Intact caloused ulcer to plantar surface left great toe, mild drainage noted today, wound culture obtained. - changing ABX based on pt hx of MRSA and recent need for partial toe amp last month. Using Vancomycin IVPB q8h. Vanco trough therapeutic, dose managed by pharmacy -A1c 5.7 -Repeat CBC and SAFETY INVESTIGATOR show improved WBC of 9.5 today -Keep wound covered with silver impregnated dressing. Change Qd and PRN. -Patient to elevate leg while laying in bed -Venous dopplers completed in September 2017 negative, dorsalis pedal pulse 2+ and posterior tibial pulse 2+ -Pain controlled with Tylenol prn -Patient will need to follow-up wound clinic and Infectious disease after discharge (2) DVT prophylaxis Current Visit: Yes Status: Acute Base Code: [id number] - Comment: 01/17/18: moderate risk due to decreased acitivy, obesity, and active infection -lovenox 40mg SQ daily (3) Full code status Current Visit: Yes Status: Acute Base Code: Z78.9 - OTHER SPECIFIED HEALTH STATUS Comment: 01/17/18: full code status this admission - Disposition Disposition: Patient will likely require at least 3 days of IV antibiotics due to MRSA history with toe amputation Results - Labs Result Diagrams: 01/17/18 06:50 01/17/18 06:50 Labs Last 24 Hours: Laboratory Results - last 24 hr 01/17/18 01/17/18 06:50 06:50 WBC 9.5 RBC 5.16 Hgb 14.6 Hct 44.3 MCV 85.9 MCH 28.3 MCHC 33.0 RDW 14.4 Plt Count 281 MPV 9.8 Gran % 69.6 Lymphocytes % 17.8 Monocytes % 8.3 Eosinophils % 4.1 Basophils % 0.2 Sodium 139 Potassium 4.0 Chloride 101 Carbon Dioxide 27.0 Anion Gap 11.0 BUN 9 Creatinine 0.5 L Estimated GFR > 60 Random Glucose 106 Calcium 8.7 DVT/PE Assessment - Risk for VTE Risk for VTE: Yes Risk Level: Moderate Risk Assessment Date: 01/14/18 Risk Assessment Time: 12:49 VTE Orders Placed or Will Be Placed: Yes - Active Medicaitons Current Medications: Current Medications Acetaminophen (Tylenol 325mg) 650 mg PO Q4H PRN PRN Reason: PAIN - MILD(1-4)/FEVER Last Admin: 01/16/18 21:47 Dose: 650 mg Duloxetine HCl (Cymbalta) 60 mg PO DAILY [facility] Last Admin: 01/16/18 10:28 Dose: 60 mg Enalapril Maleate (Vasotec) 20 mg PO DAILY [facility] Last Admin: 01/16/18 11:18 Dose: 20 mg Enoxaparin Sodium (Lovenox) 40 mg SQ DAILY [facility] Last Admin: 01/16/18 10:28 Dose: 40 mg Vancomycin HCl 1,000 mg/ (Sodium Chloride) 250 mls @ 250 mls/hr IVPB Q8H MARGARET Stop: 01/21/18 13:01 Last Infusion: 01/17/18 06:14 Dose: Infused Trazodone HCl (Desyrel) 50 mg PO QHS PRN PRN Reason: INSOMNIA Last Admin: 01/16/18 21:53 Dose: 50 mg AMI Plan - Labs Result Diagrams: 01/17/18 06:50 01/17/18 06:50
[2018-01-17] MEDS: DULOXETINE HCL 30 MG CAPSULE.DR PO SCH (10:48)
[2018-01-17] MEDS: ENALAPRIL 5 MG TABLET PO SCH (10:48)
[2018-01-17] MEDS: ENOXAPARIN 40 MG/0.4 ML SYR SQ SCH (10:49)
[2018-01-17] MEDS: ACETAMINOPHEN 325 MG TAB PO PRN (21:21)
[2018-01-17] MEDS: TRAZODONE 50 MG TABLET PO PRN (21:22)
[2018-01-18] MEDS: VANCOMYCIN HCL 1,000 MG in 0.9 % SODIUM CHLORIDE 250ML 250 ML IVPB SCH ×4 (04:04→14:29)
[2018-01-18 07:05] LABS: BASO % 0.3 % (0-6); GRAN % 69.1 % (47-80); LYMPH % 18.7 % (16-45); MEAN CORPUSCULAR HEMOGLOBIN 27.7 pg (27-33); MEAN CORPUSCULAR HGB CONC 32.6 g/dl (32-36); MEAN PLATELET VOLUME 9.5 fl (7.4-10.4); MONO % 7.9 % (0-9); PLATELET COUNT 299 K/uL (130-400); RED BLOOD COUNT 5.41 M/uL (4.40-5.70); RED CELL DISTRIBUTION WIDTH 14.4 % (11.5-14.5); WHITE BLOOD COUNT W/O DIFF 9.2 K/uL (4.2-12.2)
[2018-01-18 07:13] LABS: BLOOD UREA NITROGEN 10 mg/dL (6-20); CREATININE 0.6 mg/dL (0.7-1.2); EST GLOMERULAR FILTRATION RATE > 60 mL/min; GLUCOSE,RANDOM 108 mg/dL (74-109)
[2018-01-18] MEDS: ENOXAPARIN 40 MG/0.4 ML SYR SQ SCH (09:43)
[2018-01-18] MEDS: ENALAPRIL 5 MG TABLET PO SCH (09:44)
[2018-01-18] MEDS: DULOXETINE HCL 30 MG CAPSULE.DR PO SCH (09:44)
--- NOTE | 2018-01-18 10:31 | Discharge Summary ---
Providers Discharge Summary Date: 01/18/18 Date of admission: 01/13/18 18:43 Expected Date of Discharge: 01/18/18 Attending physician: SELINA BURCIAGA Primary care physician: SELINA BURCIAGA Physical Exam - Vital Signs Vital Signs: Vital Signs - Last 24 Hrs Temp Pulse Resp BP Pulse Ox 01/18/18 08:00 97.7 F 55 L 18 141/81 97 01/17/18 21:00 98.5 F 63 16 131/84 95 01/17/18 16:00 97.9 F 67 16 127/75 96 01/17/18 12:00 97.3 F L 63 16 128/79 95 - General General Appearance: Alert, Oriented x3, Cooperative, No acute distress Limitations: No limitations - Head Head exam: Atraumatic, Normocephalic, Normal inspection - Eye Eye exam: Normal appearance, PERRL - ENT ENT exam: Normal exam, Mucous membranes moist Ear exam: Normal external inspection Mouth exam: Normal external inspection Throat exam: Normal inspection. negative: Tonsillar erythema, Tonsillar exudate - Neck Neck exam: Normal inspection, Full ROM. negative: Tenderness - Respiratory Respiratory exam: Normal lung sounds bilaterally. negative: Respiratory distress - Cardiovascular Cardiovascular Exam: Regular rate, Normal rhythm, Normal heart sounds Peripheral Pulses: 2+: Radial (R), Radial (L), Dorsalis Pedis (R), Dorsalis Pedis (L) - GI/Abdominal GI/Abdominal exam: Soft, Normal bowel sounds. negative: Tenderness - Rectal Rectal exam: Deferred - exam: Deferred - Extremities Extremities exam: Full ROM, Normal capillary refill, Tenderness (There is tenderness to the toes on the L foot. The L foot DP pulse is 2+. ), Other ( There is a superficial ulcer to the plantar surface of the L big toe with mild surrounding erythema and tenderness. The 2-4th toes have improved erythema). negative: Normal inspection - Back Back exam: Reports: Normal inspection - Neurological Neurological exam: Alert, Normal gait, Oriented X3. negative: Abnormal gait, Motor sensory deficit - Psychiatric Psychiatric exam: Normal affect, Normal mood - Skin Skin exam: Dry, Erythema, Warm Type of lesion: Other (caloused ulcer to plantar surface of left great toe) Distribution of rash: LLE Description of rash: Erythematous, Tenderness Hospitalization - Hospitalization Admission Diagnosis: 1. L foot and Toe Cellulitis. - Problem List/Discharge Diagnosis (1) Cellulitis of foot, left Current Visit: Yes Status: Acute Base Code: L03.116 - CELLULITIS OF LEFT LOWER LIMB Comment: 01/18/18 -Left first 4 toes have improving erythema. Intact caloused ulcer to plantar surface left great toe, no drainage noted today, pending wound culture. - changing ABX based on pt hx of MRSA and recent need for partial toe amp last month. Using Vancomycin IVPB q8h. Vanco trough therapeutic, dose managed by pharmacy -A1c 5.7 -Repeat CBC and BICYCLE RENTAL CLERK show improved WBC of 9.2 today -Keep wound covered with dry silver impregnated dressing. Change Qd and PRN. -Patient to elevate leg while laying in bed -Venous dopplers completed in September 2017 negative, dorsalis pedal pulse 2+ and posterior tibial pulse 2+ -Pain controlled with Tylenol prn -Patient will need to follow-up wound clinic and Infectious disease after discharge (2) DVT prophylaxis Current Visit: Yes Status: Acute Base Code: [id number] - Comment: 01/18/18: moderate risk due to decreased acitivy, obesity, and active infection -lovenox 40mg SQ daily (3) Full code status Current Visit: Yes Status: Acute Base Code: Z78.9 - OTHER SPECIFIED HEALTH STATUS Comment: 01/18/18: full code status this admission - Disposition Patient will likely require at least 3 days of IV antibiotics due to MRSA history with toe amputation - Hospitalization Course Disposition: Home, Self-Care Hospital Course: 42 yo male admitted for left foot/toe cellulitis. PMH recent partial toe amp r/ t MRSA infection, smoker, HTN, DEP. No hx DM. Pt was seen in family practice for left foot swelling and redness. Pt was instructed to continue treatment of foot with bacitracin and bandaid. Pt was instructed to keep legs elevated and use compression socks to control edema. Pt presented to ER for continued edema and increased redness, swelling, and pain. Left foot was noted to have mild edema and redness across all the toes. Great toe noted intact blister and caloused ulcer to plantar surface. 99.1F, Hr90, Bp 148/93, RR 20, 97% RA, pain 10/10 WBC 11.7, Hgb 14.5, Hct 43.9, plt 337 Na 142, K 3.2 (replaced in ER), CL 103, CO2 24, BUN 11, creatinine 0.6, GFR >60 , glucose 174, CRP 0.96 Pt given Unasyn 3gm in ER. 01/14/18 -pt resting in bed, no acute distress. Quique ankle edema noted, non pitting. Left toes are red, warm to the touch but no open areas or drainage noted. Intact blister to ant great toe and intact caloused ulcer to plantar surface great toe. Pt is denying shoes being too tight or any known inury. Second toe surgical incision appears healed and well approximated, no s/s of surgical complications. POC- changing ABX based on pt hx of MRSA and recent need for partial toe amp last month. Using Vancomycin and Zosyn IVPB Labs repeated, K 3.8 and A1c 5.7. Keep wound covered with triple abx oint and gauze wrapping. Change Qd and PRN. No discharge to culture at this time. PCP Michelle Alanis COLOR CARD MAKER 01/18/2018: Patient has had 4 full days of Vanco IVPB with improvement in erythema , decreased swelling, and noted improvement in ulcer on plantar surface of left great toe. Patient has remained afebrile, WBC trending down. Wound culture obtained 01/17/18 pending. Patient has been set-up with Dr. Brock (I&D) to follow -up 01/22/18. Working to set patient up with wound clinic for close observation of great toe ulcer. Patient to follow-up at [facility] within 1 week. Will be discharged on Bactrim for MRSA coverage, based on history. Procedures: Imaging and X-Rays 01/13/18 17:41 FOOT, LEFT 3 VIEWS [RAD] Stat Abnormal Labs: Abnormal Lab Results 01/13/18 01/13/18 01/13/18 Range/Units 18:00 18:00 18:00 RDW 15.0 H (11.5-14.5) % Lymphocytes % (16-45) % Potassium 3.2 L (3.4-4.5) mmol/L Creatinine 0.6 L (0.7-1.2) mg/dL Random Glucose 174 H (74-109) mg/dL Calcium (8.6-10.0) mg/dL C-Reactive Protein 0.96 H (<0.5) mg/dL Vancomycin Trough (5.0-10.0) ug/mL 01/14/18 01/15/18 01/15/18 Range/Units 10:00 10:23 10:23 RDW 14.6 H (11.5-14.5) % Lymphocytes % 13.8 L (16-45) % Potassium (3.4-4.5) mmol/L Creatinine 0.5 L (0.7-1.2) mg/dL Random Glucose 135 H (74-109) mg/dL Calcium 8.5 L (8.6-10.0) mg/dL C-Reactive Protein (<0.5) mg/dL Vancomycin Trough 20.2 H* (5.0-10.0) ug/mL 01/15/18 01/17/18 01/18/18 Range/Units 10:23 06:50 06:43 RDW (11.5-14.5) % Lymphocytes % (16-45) % Potassium (3.4-4.5) mmol/L Creatinine 0.6 L 0.5 L 0.6 L (0.7-1.2) mg/dL Random Glucose 149 H (74-109) mg/dL Calcium (8.6-10.0) mg/dL C-Reactive Protein (<0.5) mg/dL Vancomycin Trough (5.0-10.0) ug/mL Condition at Discharge: (2) Stable VTE Discharge VTE Reason For No Overlap Therapy: Not Indicated Discharge Medications - Discharge Medications Prescriptions: Sulfamethoxazole/Trimethoprim [Bactrim Ds Tablet] 1 each PO BID 14 Days #28 tablet Home Medications: Ambulatory Orders Sulfamethoxazole/Trimethoprim [Bactrim Ds Tablet] 1 each PO BID 14 Days #28 tablet 01/18/18 [Last Taken Unknown] Discharge Plan - Discharge Instructions Activity at Discharge: Increase Activity as Tolerated Diet at Discharge: Regular Diet Wound Primary Dressing Type: Silver Dressing (covered by gauze) Dressing Change: Daily Additional Instructions: Appointment with Dr. Brock on Monday 01/22 at 10:00AM-[address] [facility]. [address], Please call Dr. Stone's office re: insurance and appointment scheduled for 01/24. PHONE [phone] Follow-up as scheduled at [facility] Take the Bactrim twice a day Change the dressing at least once per day with the silver dressing and covered in gauze. Ensure area stays clean and dry. Quality Measures - Quality Measures Quality Measures: Documentation of Current Medications in Medical Record, Screening for High Blood Pressure and F/U Documented - Current Medications Quality Measure: Measure #130: Documentation of Current Medications Documentation of Current Medications: <Current Medications Documented/Reviewed> [G8427] - Blood Pressure Screening Quality Measure: Screening for High Blood Pressure and Follow-Up Documented Does Patient Have Any of the Following: Active Dx of HTN Blood Pressure Classification: Hypertensive Reading Systolic Measurement: 148 Diastolic Measurement: 93 Screening for High Blood Pressure: Patient Exclusion, Hx of HTN [G9744] - Elder Abuse Suspicion Index EASI Reference Information: Fredrick WIN, Jose Juan C, Elvia D, Rafael Bhatt.Development and validation of a tool to assist physicians identification of elder abuse: The Elder Abuse Suspicion Index (EASI ). Journal of Elder Abuse and Neglect, 2008; 20 (3): 276-300.
== END 2018-01-18 15:50 | disposition home or self-care (01) | DRG 603 ==
LOC: ER 17:11 → MEDSURG 18:43
PROVIDERS: ADMIT Internal Medicine; ATTEND Internal Medicine
DX: L03.116 Cellulitis of left lower limb (principal); I10 Essential (primary) hypertension; G62.9 Polyneuropathy, unspecified; R60.9 Edema, unspecified; Z86.14 Personal history of Methicillin resistant Staphylococcus aureus infection; Z87.891 Personal history of nicotine dependence; M25.472 Effusion, left ankle
CPT/HCPCS: 80048; 80202; 83036; 85025; 86140; 96365; 99223; 99233; 99239; 99285; J0295; J1650; J2543; J7050

== ENCOUNTER 2018-04-16 15:00 | Emergency (ER) | payer MEDICAID ==
[2018-04-16] MEDS ORDERED: IPRATROPIUM/ALBUTEROL (0.5MG/3MG) NEB INH ONE (15:21)
[2018-04-16] MEDS ORDERED: METHYLPREDNISOLONE PF 125MG/VIAL IM ONE (15:21)
[2018-04-16 15:50] LABS: BASO % 0.3 % (0-6); EOS % 4.1 % (0-6); GRAN % 67.1 % (47-80); HEMATOCRIT 49.5 % (42.0-52.0); HEMOGLOBIN 16.5 gm/dl (14.0-18.0); LYMPH % 19.6 % (16-45); MEAN CELL VOLUME 82.9 fl (81-97); MEAN CORPUSCULAR HEMOGLOBIN 27.6 pg (27-33); MEAN CORPUSCULAR HGB CONC 33.3 g/dl (32-36); MEAN PLATELET VOLUME 9.3 fl (7.4-10.4); MONO % 8.9 % (0-9); PLATELET COUNT 350 K/uL (130-400); RED BLOOD COUNT 5.97 M/uL (4.40-5.70); RED CELL DISTRIBUTION WIDTH 14.2 % (11.5-14.5); WHITE BLOOD COUNT W/O DIFF 10.2 K/uL (4.2-12.2)
[2018-04-16 16:02] LABS: BLOOD UREA NITROGEN 12 mg/dL (6-20); CREATININE 0.5 mg/dL (0.7-1.2); EST GLOMERULAR FILTRATION RATE > 60 mL/min
[2018-04-16 16:04] LABS: INFLUENZA A NEGATIVE (NEGATIVE); INFLUENZA B NEGATIVE (NEGATIVE)
[2018-04-16 16:05] LABS: GLUCOSE,RANDOM 125 mg/dL (74-109)
--- NOTE | 2018-04-16 17:14 | Emergency Department Record ---
History of Present Illness - General Chief Complaint: Shortness of breath Stated Complaint: LOW O2 Time Seen by Provider: 04/16/18 15:21 Source: Patient Mode of Arrival: Wheelchair Limitations: No limitations - History of Present Illness Initial Comments: Pt with 5 days of body aches, chills, cough with yellow green sputum and MIGUELINA. Non smoker. No asthma. Pt coughs thru day and worse at night. No vomiting. No DM. Onset/Timin -: Days(s) Severity: Moderate Severity scale (1-10): 6 Quality: Aching Consistency: Constant Improves With: Nothing Worsens With: Nothing Associated Symptoms: Cough, Sputum production Treatments Prior to Arrival: None - Related Data Home Oxygen Therapy: No Previous Rx's Medication Instructions Recorded Albuterol Sulfate [Proair Hfa] 1 - 2 puff IH .EVERY 4-6 HOURS PRN 04/16/18 7 Days #1 inhaler Doxycycline Hyclate [Vibramycin] 100 mg PO BID 10 Days #20 capsule 04/16/18 Prednisone [Prednisone 20Mg] 60 mg PO DAILY 4 Days #12 tab 04/16/18 Allergies Allergy/AdvReac Type Severity Reaction Status Date / Time No Known Drug Allergies Allergy Unverified 04/16/18 14:31 Travel Screening - Travel/Exposure Within Last 30 Days Have you traveled within the last 30 days?: No Review of Systems Constitutional: Reports: Chills, Malaise. Denies: Fever Eyes: Denies: Eye discharge, Eye pain ENT: Reports: Congestion. Denies: Ear pain, Epistaxis Respiratory: Reports: Cough, Dyspnea. Denies: Hemoptysis, Stridor, Wheezes Cardiovascular: Denies: Arrhythmia, Chest pain, Syncope Endocrine: Reports: Fatigue. Denies: Polydipsia Gastrointestinal: Denies: Abdominal pain, Diarrhea, Nausea, Vomiting Genitourinary: Denies: Dysuria Musculoskeletal: Denies: Arthralgia, Back pain Skin: Denies: Bruising Neurological: Denies: Abnormal gait, Headache, Tingling Psychiatric: Denies: Anxiety, Suicidal thoughts Hematological/Lymphatic: Denies: Anemia Past Medical History - SOCIAL HISTORY Smoking Status: Former smoker - RESPIRATORY Hx Respiratory Disorders: Yes Hx Sleep Apnea: Yes Hx of CPAP: Yes Comment:: doesn't use CPAP - "haven't used in a while" - CARDIOVASCULAR Hx Cardio Disorders: Yes Hx Abnormal EKG: No Hx Cardiac Cath: No Hx Chest Pain: No Hx CHF: No Hx Deep Vein Thrombosis: No Hx Edema: Yes Hx Heart Attack: No Hx Hypertension: Yes Hx Hypotension: No Hx Irregular Heartbeat: No Hx Palpitations: No Hx Pacemaker/Defib: No Hx Vascular Disease: No - NEURO Hx Neuro Disorders: Yes Comment:: Neuropathy-feet - GI Hx GI Disorders: No - Hx Genitourinary Disorders: No - ENDOCRINE Hx Endocrine Disorders: No Hx Diabetes: No Hx Thyroid Disease: No - MUSCULOSKELETAL Hx Musculoskeletal Disorders: No - PSYCH Hx Psych Problems: Yes Hx Anxiety: Yes - HEMATOLOGY/ONCOLOGY Hx Hematology/Oncology Disorders: No Family Medical History Any Significant Family History?: Yes Hx Cancer: Father *Cancer Comment: 1991 Physical Exam - General General Appearance: Alert, Oriented x3, Cooperative, Moderate distress Limitations: No limitations - Head Head exam: Atraumatic - Eye Eye exam: Normal appearance, PERRL - ENT ENT exam: Normal exam, Mucous membranes moist, Normal external ear exam, Normal orophraynx, TM's normal bilaterally - Neck Neck exam: Normal inspection. negative: Lymphadenopathy, Meningismus - Respiratory Respiratory exam: Prolonged expiratory, Rhonchi, Wheezes. negative: Chest wall tenderness - Cardiovascular Cardiovascular Exam: Regular rate, Normal rhythm. negative: Tachycardia - GI/Abdominal GI/Abdominal exam: Normal bowel sounds. negative: Tenderness - Extremities Extremities exam: Other (left foot chronic wound. ) - Back Back exam: Reports: Normal inspection - Neurological Neurological exam: Alert, CN II-XII intact, Normal gait, Oriented X3 - Psychiatric Psychiatric exam: Normal affect - Skin Skin exam: Normal color. negative: Rash Course Vital Signs 04/16/18 04/16/18 15:11 15:25 Temperature 98.1 F Pulse Rate 95 H 86 Respiratory 24 18 Rate Blood Pressure 146/95 Pulse Ox 91 L 96 - Reevaluation(s) Reevaluation #1: 04/16/18 17:06 Seen and exam. Nebs and IM solumedrol. Flu swabs neg and CXR neg. Improved in ED. Plan home with AB, prednisone and inhaler. Medical Decision Making - Lab Data Result diagrams: 04/16/18 13:58 04/16/18 13:58 Lab Results 04/16/18 04/16/18 04/16/18 Range/Units 13:58 13:58 13:58 WBC 10.2 (4.2-12.2) K/uL RBC 5.97 H (4.40-5.70) M/uL Hgb 16.5 (14.0-18.0) gm/dl Hct 49.5 (42.0-52.0) % MCV 82.9 (81-97) fl MCH 27.6 (27-33) pg MCHC 33.3 (32-36) g/dl RDW 14.2 (11.5-14.5) % Plt Count 350 (130-400) K/uL MPV 9.3 (7.4-10.4) fl Gran % 67.1 (47-80) % Lymphocytes % 19.6 (16-45) % Monocytes % 8.9 (0-9) % Eosinophils % 4.1 (0-6) % Basophils % 0.3 (0-6) % Sodium 138 (136-145) mmol/L Potassium 3.9 (3.4-4.5) mmol/L Chloride 97 L (98-107) mmol/L Carbon Dioxide 25.0 (22-29) mmol/L Anion Gap 16.0 (7-16) BUN 12 (6-20) mg/dL Creatinine 0.5 L (0.7-1.2) mg/dL Estimated GFR > 60 mL/min Random Glucose 125 H (74-109) mg/dL Calcium 9.6 (8.6-10.0) mg/dL Nasal Influenza A PCR Nasal Influenza B PCR Influenza Type A Ag Negative (NEGATIVE) Influenza Type B Ag Negative (NEGATIVE) Specimen Comment 04/16/18 Range/Units 15:22 WBC (4.2-12.2) K/uL RBC (4.40-5.70) M/uL Hgb (14.0-18.0) gm/dl Hct (42.0-52.0) % MCV (81-97) fl MCH (27-33) pg MCHC (32-36) g/dl RDW (11.5-14.5) % Plt Count (130-400) K/uL MPV (7.4-10.4) fl Gran % (47-80) % Lymphocytes % (16-45) % Monocytes % (0-9) % Eosinophils % (0-6) % Basophils % (0-6) % Sodium (136-145) mmol/L Potassium (3.4-4.5) mmol/L Chloride (98-107) mmol/L Carbon Dioxide (22-29) mmol/L Anion Gap (7-16) BUN (6-20) mg/dL Creatinine (0.7-1.2) mg/dL Estimated GFR mL/min Random Glucose (74-109) mg/dL Calcium (8.6-10.0) mg/dL Nasal Influenza A PCR Cancelled Nasal Influenza B PCR Cancelled Influenza Type A Ag (NEGATIVE) Influenza Type B Ag (NEGATIVE) Specimen Comment Cancelled Disposition Disposition: Discharge Clinical Impression: Bronchitis, Reactive airway disease with wheezing Disposition: Home, Self-Care Condition: (2) Stable Instructions: Acute Bronchitis (ED), Bronchospasm (ED) Prescriptions: Albuterol Sulfate [Proair Hfa] 1 - 2 puff IH .EVERY 4-6 HOURS PRN 7 Days #1 inhaler PRN Reason: Difficulty In Breathing Doxycycline Hyclate [Vibramycin] 100 mg PO BID 10 Days #20 capsule Prednisone [Prednisone 20Mg] 60 mg PO DAILY 4 Days #12 tab Quality - Quality Measures Quality Measures: N/A, Adult Bronchitis (18-64yr) - Adult Bronchitis Quality Measure: Measure #116: Avoidance of ABX w/Adult Bronchitis Is patient being admitted: Yes Avoidance of ABX w/Bronchitis: Medical Reason for prescribing ABX [G9712] Medical Reason For Rx: Bacterial infection - Blood Pressure Screening Does Patient Have Any of the Following: No Blood Pressure Classification: Hypertensive Reading Systolic Measurement: 146 Diastolic Measurement: 95 Screening for High Blood Pressure: < Pre-Hypertensive BP, F/U Documented > [ G8950] Pre-Hypertensive Follow-up Interventions: Follow-up with rescreen every year.
== END 2018-04-16 17:40 | disposition home or self-care (01) ==
LOC: ER 15:00
DX: J20.9 Acute bronchitis, unspecified (principal); J45.909 Unspecified asthma, uncomplicated; R06.02 Shortness of breath; I10 Essential (primary) hypertension; I25.2 Old myocardial infarction; Z87.891 Personal history of nicotine dependence
CPT/HCPCS: 71046; 80048; 85025; 87400; 94640; 96372; 99283; 99284; J2930

== ENCOUNTER 2019-04-26 14:20 | Emergency (ER) | payer MEDICAID ==
[2019-04-26] MEDS ORDERED: DIPHENHYDRAMINE HCL 50 MG/ML VIAL IM ONE (14:58)
[2019-04-26] MEDS ORDERED: MAGNESIUM HYDROXIDE/AL HYDROX 30 ML, LIDOCAINE VISC 2% 15ML 15 ML PO ONE ×2 (14:59)
--- NOTE | 2019-04-26 15:05 | Emergency Department Record ---
History of Present Illness - General Chief complaint: Hives Stated complaint: HIVES ALL OVER BODY Time Seen by Provider: 04/26/19 14:43 Source: Patient Mode of Arrival: Ambulatory Limitations: No limitations - History of Present Illness Initial comments: The patient is here due to an itchy rash all over his trunk for 3-4 days. He denies any trouble swallowing or breathing or swelling with it. He denies any new medicines or foods but did recently start a new body wash. He also has had an aching very mild chest and abdominal pressure along with the rash for a few days. It seems to be worse with eating and NOT related to exertion and feels like heartburn. He also has had no SOB, MIGUELINA, sweating or nausea with it. MD complaint: Rash Onset/Timin -: Days(s) Location: Chest Severity: Moderate Consistency: Constant Improves with: None Worsens with: None Context: None Associated symptoms: Itching Treatments Prior to Arrival: Benadryl, OTC topical medication - Related Data Previous Rx's Medication Instructions Recorded Albuterol Sulfate [Proair Hfa] 1 - 2 puff IH .EVERY 4-6 HOURS PRN 04/16/18 7 Days #1 inhaler Sucralfate [Carafate] 1 gm PO QID #28 tablet 04/26/19 Allergies Allergy/AdvReac Type Severity Reaction Status Date / Time No Known Drug Allergies Allergy Verified 04/26/19 14:33 Travel Screening - Travel/Exposure Within Last 30 Days Have you traveled within the last 30 days?: Yes Location Detail:: [place] 1 week ago - Travel/Exposure Within Last Year Have you traveled outside the [place] in the last year?: No - Additonal Travel Details Have you been exposed to anyone with a communicable illness?: No - Travel Symptoms Symptom Screening: Lack of Appetite, Rash, Chills Review of Systems Constitutional: Denies: Chills, Fever Eyes: Denies: Eye discharge ENT: Denies: Congestion Respiratory: Denies: Cough, Dyspnea Cardiovascular: Denies: Arrhythmia, Chest pain Past Medical History - SOCIAL HISTORY Smoking Status: Former smoker Alcohol Use: None Drug Use: None - RESPIRATORY Hx Respiratory Disorders: Yes Hx Sleep Apnea: Yes Hx of CPAP: Yes - CARDIOVASCULAR Hx Cardio Disorders: Yes Hx Abnormal EKG: No Hx Cardiac Cath: No Hx Chest Pain: No Hx CHF: No Hx Deep Vein Thrombosis: No Hx Edema: Yes Hx Heart Attack: No Hx Hypertension: Yes Hx Hypotension: No Hx Irregular Heartbeat: No Hx Palpitations: No Hx Pacemaker/Defib: No Hx Vascular Disease: No Comment:: high cholesterol - NEURO Hx Neuro Disorders: Yes Comment:: Neuropathy-feet - GI Hx GI Disorders: No - Hx Genitourinary Disorders: No - ENDOCRINE Hx Endocrine Disorders: No Hx Diabetes: No Hx Thyroid Disease: No - MUSCULOSKELETAL Hx Musculoskeletal Disorders: No - PSYCH Hx Psych Problems: Yes Hx Anxiety: Yes - HEMATOLOGY/ONCOLOGY Hx Hematology/Oncology Disorders: No Family Medical History Any Significant Family History?: Yes Hx Cancer: Father *Cancer Comment: 1991 Physical Exam - General General Appearance: Alert, Oriented x3, Cooperative, No acute distress - Head Head exam: Atraumatic, Normocephalic - Eye Eye exam: Normal appearance, PERRL - ENT Throat exam: Normal inspection. negative: Tonsillar erythema, Tonsillar exudate - Neck Neck exam: Normal inspection - Respiratory Respiratory exam: Normal lung sounds bilaterally. negative: Respiratory distress - Cardiovascular Cardiovascular Exam: Regular rate, Normal rhythm, Normal heart sounds - GI/Abdominal GI/Abdominal exam: Soft, Normal bowel sounds. negative: Tenderness - Extremities Extremities exam: Normal inspection, Full ROM, Normal capillary refill. negative: Tenderness - Neurological Neurological exam: Alert. negative: Motor sensory deficit - Skin Skin exam: Urticaria (There is a diffuse scattered urticarial rash to the trunk anteriorly and posteriorly. There is no purpura or petechiae.) Course Vital Signs 04/26/19 14:27 Temperature 98.5 F Pulse Rate 93 H Respiratory 18 Rate Blood Pressure 150/100 Pulse Ox 97 - Reevaluation(s) Reevaluation #1: The patient's symptoms are now resolved. His itching is gone and his rash is also resolved. The patient's heartburn also is resolved with the GI medicines. We will place the patient on Carafate and have him take his home Benadryl and see his PCP this week for recheck. 04/26/19 15:53 Medical Decision Making - Data Complexity MDM Data: Labs Ordered and/or Reviewed, EKG Ordered and/or Reviewed - Lab Data Result diagrams: 04/26/19 15:10 04/26/19 15:10 - EKG Data -: EKG Interpreted by Me EKG: No Acute Changes, Normal EKG Disposition Disposition: Discharge Clinical Impression: Allergic urticaria Disposition: Home, Self-Care Condition: (2) Stable Instructions: Urticaria (ED) Additional Instructions: Please take Benadryl 4 times a day for 5 days and take the Carafate as directed. Please see your doctor for recheck this week. Return to the ER for any worsening symptoms. Prescriptions: Sucralfate [Carafate] 1 gm PO QID #28 tablet Forms: Patient Portal Access Time of Disposition: 15:57 Quality - Quality Measures Quality Measures: N/A - Blood Pressure Screening View Details: Yes Does Patient Have Any of the Following: No Blood Pressure Classification: Hypertensive Reading Systolic Measurement: 150 Diastolic Measurement: 100 Screening for High Blood Pressure: < First Hypertensive BP, F/U Documented > [G8950] First Hypertensive Follow-up Interventions: Referral to alternative/primary care provider.
[2019-04-26 15:13] LABS: BASO % 0.2 % (0-6); EOS % 2.5 % (0-6); GRAN % 73.9 % (47-80); HEMATOCRIT 48.5 % (42.0-52.0); HEMOGLOBIN 15.7 gm/dl (14.0-18.0); LYMPH % 14.5 % (16-45); MEAN CELL VOLUME 84.3 fl (81-97); MEAN CORPUSCULAR HEMOGLOBIN 27.3 pg (27-33); MEAN CORPUSCULAR HGB CONC 32.4 g/dl (32-36); MEAN PLATELET VOLUME 9.5 fl (7.4-10.4); MONO % 8.9 % (0-9); PLATELET COUNT 329 K/uL (130-400); RED BLOOD COUNT 5.75 M/uL (4.40-5.70); RED CELL DISTRIBUTION WIDTH 14.7 % (11.5-14.5); WHITE BLOOD COUNT W/O DIFF 11.9 K/uL (4.2-12.2)
[2019-04-26] MEDS ORDERED: DIPHENHYDRAMINE HCL 50 MG/ML VIAL IVP ONE (15:19)
[2019-04-26 15:28] LABS: BLOOD UREA NITROGEN 10 mg/dL (6-20); CREATININE 0.7 mg/dL (0.7-1.2); EST GLOMERULAR FILTRATION RATE > 60 mL/min; TOTAL PROTEIN 7.5 g/dL (6.6-8.7)
[2019-04-26 15:30] LABS: GLUCOSE,RANDOM 138 mg/dL (74-109)
[2019-04-26 15:33] LABS: ALB/GLOB RATIO 0.9 (1.1-1.8); ALBUMIN 3.6 g/dL (4.0-5.0); ALKALINE PHOSPHATASE 95 U/L (40-129); ALT/SGPT 20 U/L (<41); AST/SGOT 21 U/L (10.0-50.0)
== END 2019-04-26 16:10 | disposition home or self-care (01) ==
LOC: ER 14:20
DX: L50.0 Allergic urticaria (principal); R12 Heartburn; R07.89 Other chest pain; I10 Essential (primary) hypertension; Z87.891 Personal history of nicotine dependence
CPT/HCPCS: 80053; 83690; 84484; 85025; 93005; 93010; 96372; 96374; 99284; J1200

== ENCOUNTER 2019-07-22 09:42 | Emergency (ER) | payer MEDICAID ==
--- NOTE | 2019-07-22 09:48 | Emergency Department Record ---
History of Present Illness - General Chief complaint: Cold Stated complaint: SINUS INFECTION Time Seen by Provider: 07/22/19 09:44 Source: Patient Mode of Arrival: Ambulatory Limitations: No limitations - History of Present Illness Initial comments: 44 yo male presents with sinus pain and congestion. He has associated cough. His drainage is green and sputum is green. No blood in either. He ear feel plugged. He has facial pressure and pain mainly in the maxillary area. No shortness of breath. It does hurt to cough. No abdominal pain. No edema. No back pain. No chronic lung disease. He quit smoker over one year ago. -: Days(s) Severity: Moderate Quality: Aching Consistency: Constant Improves with: None Worsens with: None Context-Epistaxis: Other Context- Ear: Other Associated Symptoms: Cough, Rhinorrhea, Other (sinus pressure, pain with cough) - Related Data Previous Rx's Medication Instructions Recorded Albuterol Sulfate [Proair Hfa] 1 - 2 puff IH .EVERY 4-6 HOURS PRN 04/16/18 7 Days #1 inhaler Amoxicillin/Potassium Clav 1 tab PO BID #20 tab 07/22/19 [Augmentin 500Mg/125Mg] Allergies Allergy/AdvReac Type Severity Reaction Status Date / Time No Known Drug Allergies Allergy Unverified 05/29/19 14:49 Review of Systems Constitutional: Denies: Chills, Malaise, Weakness Eyes: Denies: Eye discharge ENT: Reports: Congestion, Ear pain. Denies: Hearing loss Respiratory: Reports: Cough. Denies: Hemoptysis, Wheezes Cardiovascular: Reports: Other (Pain with coughing). Denies: Chest pain, Edema, Palpitations, Syncope Endocrine: Denies: Fatigue, Polydipsia, Polyuria Gastrointestinal: Denies: Abdominal pain, Diarrhea, Nausea, Vomiting Genitourinary: Denies: Dysuria, Frequency, Hematuria Musculoskeletal: Denies: Arthralgia, Back pain, Joint swelling, Myalgia Skin: Denies: Bruising, Change in color, Rash Neurological: Denies: Headache, Numbness, Weakness Psychiatric: Denies: Anxiety Hematological/Lymphatic: Denies: Easy bleeding, Easy bruising Past Medical History - SOCIAL HISTORY Smoking Status: Former smoker Drug Use: None - RESPIRATORY Hx Respiratory Disorders: Yes Hx Sleep Apnea: Yes Hx of CPAP: Yes - CARDIOVASCULAR Hx Cardio Disorders: Yes Hx Abnormal EKG: No Hx Cardiac Cath: No Hx Chest Pain: No Hx CHF: No Hx Deep Vein Thrombosis: No Hx Edema: Yes Hx Heart Attack: No Hx Hypertension: Yes Hx Hypotension: No Hx Irregular Heartbeat: No Hx Palpitations: No Hx Pacemaker/Defib: No Hx Vascular Disease: No Comment:: high cholesterol - NEURO Hx Neuro Disorders: Yes Comment:: Neuropathy-feet - GI Hx GI Disorders: No - Hx Genitourinary Disorders: No - ENDOCRINE Hx Endocrine Disorders: No Hx Diabetes: No Hx Thyroid Disease: No - MUSCULOSKELETAL Hx Musculoskeletal Disorders: No - PSYCH Hx Psych Problems: Yes Hx Anxiety: Yes - HEMATOLOGY/ONCOLOGY Hx Hematology/Oncology Disorders: No Family Medical History Hx Cancer: Father *Cancer Comment: 1991 Physical Exam - General General Appearance: Alert, Oriented x3, Cooperative, No acute distress Limitations: No limitations - Head Head exam: Atraumatic, Normal inspection - Eye Eye exam: Normal appearance, Periorbital tenderness. negative: Conjunctival injection, Periorbital swelling, Scleral icterus - ENT ENT exam: Mucous membranes moist, Normal orophraynx, TM's normal bilaterally. negative: Mucous membranes dry Ear exam: negative: Normal external inspection Nasal Exam: Discharge (green), Sinus tenderness. negative: Dried blood Mouth exam: Normal external inspection Teeth exam: Normal inspection Throat exam: Normal inspection. negative: Tonsillar erythema, Tonsillomegaly, Tonsillar exudate, R peritonsillar mass, L peritonsillar mass - Neck Neck exam: Normal inspection, Full ROM. negative: Lymphadenopathy, Tenderness - Respiratory Respiratory exam: Normal lung sounds bilaterally. negative: Accessory muscle use, Decreased breath sounds, Prolonged expiratory, Rhonchi, Stridor, Wheezes - Cardiovascular Cardiovascular Exam: Regular rate, Normal rhythm, Normal heart sounds - GI/Abdominal GI/Abdominal exam: Soft. negative: Tenderness - Rectal Rectal exam: Deferred - exam: Deferred - Back Back exam: Reports: Normal inspection. Denies: CVA tenderness (R), CVA tenderness (L) - Neurological Neurological exam: Alert, Oriented X3 - Psychiatric Psychiatric exam: Normal affect, Normal mood. negative: Agitated, Anxious - Skin Skin exam: Dry, Intact, Normal color, Warm Course - Reevaluation(s) Reevaluation #1: 07/22/19 09:56 The examination is consistent with acute sinusitis with green DC, tendernes No hypoxia No chronic lung conditions Disposition Disposition: Discharge Clinical Impression: Sinusitis Qualifiers: Sinusitis location: unspecified location Chronicity: acute Recurrence: not specified as recurrent Qualified Code(s): J01.90 - Acute sinusitis, unspecified Disposition: Home, Self-Care Condition: (1) Good Instructions: Sinusitis (ED) Additional Instructions: Review this ER visit and the tests performed with your family doctor Call your doctor for the next available follow up appointment Return to the ER for a recheck immediately if worse, any new concerns or questions Take the prescriptions provided as directed Prescriptions: Amoxicillin/Potassium Clav [Augmentin 500Mg/125Mg] 1 tab PO BID #20 tab Forms: Patient Portal Access Time of Disposition: 09:56 Quality - Quality Measures Quality Measures: N/A - Blood Pressure Screening Does Patient Have Any of the Following: Active Dx of HTN Blood Pressure Classification: Hypertensive Reading Systolic Measurement: 145 Diastolic Measurement: 93 Screening for High Blood Pressure: Patient Exclusion, Hx of HTN [G9744]
== END 2019-07-22 10:06 | disposition home or self-care (01) ==
LOC: ER 09:42
DX: J01.90 Acute sinusitis, unspecified (principal); R05 Cough; I10 Essential (primary) hypertension; Z87.891 Personal history of nicotine dependence
CPT/HCPCS: 99283